=== PATIENT | female | born 1955 | race African-American/Black ===

== ENCOUNTER 2018-11-26 19:52 | Observation (INO) | payer OTHER ==
[2018-11-26 19:58] VITALS: BMI 27.9
--- NOTE | 2018-11-26 20:04 | PDOC ---
History of Present Illness - General Chief Complaint: Altered Mental Status Stated Complaint: DIZZINESS/WEAKNESS Time Seen by Provider: 11/26/18 20:03 Past History - Past Medical History Allergies/Adverse Reactions: Allergies Allergy/AdvReac Type Severity Reaction Status Date / Time No Known Allergies Allergy Verified 11/26/18 19:58 CVA: Yes (tia) COPD: No Diabetes: Yes HTN: Yes Hypercholesterolemia: Yes - Suicide/Smoking/Psychosocial Hx Smoking History: Never smoked *Physical Exam - Vital Signs Last Vital Signs Temp Pulse Resp BP Pulse Ox 82 16 108/78 98 11/26/18 19:55 11/26/18 19:55 11/26/18 19:55 11/26/18 19:55
--- NOTE | 2018-11-26 20:05 | PDOC ---
Attending Attestation - HPI HPI: This patient is a 60 year old female with PMHx of DM, HTN, HLD who presents for evaluation of weakness and dizziness earlier today. Her family states that she was discharged from [facility] yesterday following TIA. Patient has been increasingly confused for a year and is at her baseline today. She states that she fell down 2x after feeling weak. She denies hitting head, loc, chest pain, shortness of breath, confusion, or prior falls. - Physicial Exam PE: GENERAL: Awake, alert, and fully oriented, in no acute distress HEAD: No signs of trauma EYES: PERRLA, EOMI, sclera anicteric, conjunctiva clear NECK: Normal ROM, supple, no lymphadenopathy, JVD, or masses LUNGS: Breath sounds equal, clear to auscultation bilaterally. No wheezes, and no crackles HEART: Regular rate and rhythm, normal S1 and S2, no murmurs, rubs or gallops ABDOMEN: Soft, nontender, normoactive bowel sounds. No guarding, no rebound. No masses EXTREMITIES: Normal range of motion, no edema. No clubbing or cyanosis. No cords, erythema, or tenderness NEUROLOGICAL: Cranial nerves II through XII grossly intact. Normal speech, normal gait SKIN: Warm, Dry, normal turgor, no rashes or lesions noted. <Indiana Wiley - Last Filed: 11/26/18 22:31> - Resident Resident Name: Juancarlos Jackson - HPI HPI: 11/26/18 22:03 - Medical Decision Making 11/26/18 22:19 Pt presents to the ED complaining of fall from standing x 2 today, along with mild lightheadness. Now denies complaints and is neurologically intact. Recent admission to [facility] for TIA. Differential includes infection, metabolic derrangement, less likely TIA. 11/26/18 22:19 <Azra De Leon - Last Filed: 11/27/18 01:46> Attestations - Attestations 11/26/18 22:31 Documentation prepared by Indiana Wiley, acting as anesthesiology medical doctor for Azra De Leon MD. <Indiana Wiley - Last Filed: 11/26/18 22:31>
--- NOTE | 2018-11-26 20:44 | PDOC ---
History of Present Illness - General Chief Complaint: Altered Mental Status Stated Complaint: DIZZINESS/WEAKNESS Time Seen by Provider: 11/26/18 20:03 - History of Present Illness Initial Comments: 11/26/18 20:42 Ms. Degroot is a 60 yo female w/ pmh of DM, HTN, HLD who presents for evaluation of weakness earlier today. Family w/ patient report she was discharged from [facility] yesterday following TIA. Patient has been increasingly confused for a year and is at her baseline today. Presents today as patient was leaning against a car and fell down as she felt weak. Denies LOC or hitting her head. The patient denies chest pain, shortness of breath, headache and dizziness. Denies fever, chills, nausea, vomit, diarrhea and constipation. Denies dysuria, frequency, urgency and hematuria. Past History - Past Medical History Allergies/Adverse Reactions: Allergies Allergy/AdvReac Type Severity Reaction Status Date / Time No Known Allergies Allergy Verified 11/26/18 19:58 CVA: Yes (tia) COPD: No Diabetes: Yes HTN: Yes Hypercholesterolemia: Yes - Suicide/Smoking/Psychosocial Hx Smoking History: Never smoked Review of Systems - Review of Systems Comments:: 11/26/18 20:42 GENERAL/CONSTITUTIONAL: +Weakness as described. No fever or chills. HEAD, EYES, EARS, NOSE AND THROAT: No change in vision. No ear pain or discharge. No sore throat. CARDIOVASCULAR: No chest pain or shortness of breath RESPIRATORY: No cough, wheezing, or hemoptysis. GASTROINTESTINAL: No nausea, vomiting, diarrhea or constipation. GENITOURINARY: No dysuria, frequency, or change in urination. MUSCULOSKELETAL: No joint or muscle swelling or pain. No neck or back pain. SKIN: No rash NEUROLOGIC: +Mild confusion at baseline (per family). No headache, vertigo, loss of consciousness, or change in strength/sensation. ENDOCRINE: No increased thirst. No abnormal weight change HEMATOLOGIC/LYMPHATIC: No anemia, easy bleeding, or history of blood clots. ALLERGIC/IMMUNOLOGIC: No hives or skin allergy. *Physical Exam - Vital Signs Last Vital Signs Temp Pulse Resp BP Pulse Ox 97.6 F 82 16 108/78 98 11/26/18 20:32 11/26/18 19:55 11/26/18 19:55 11/26/18 19:55 11/26/18 19:55 - Physical Exam Comments: 11/26/18 20:43 GENERAL: +Patient mildly confused. Awake, alert, and oriented to baseline, in no acute distress HEAD: No signs of trauma, normocephalic, atraumatic EYES: PERRLA, EOMI, sclera anicteric, conjunctiva clear ENT: Auricles normal inspection, hearing grossly normal, nares patent, oropharynx clear without exudates. Moist mucosa NECK: Normal ROM, supple, no lymphadenopathy, JVD, or masses LUNGS: No distress, speaks full sentences, clear to auscultation bilaterally HEART: Regular rate and rhythm, normal S1 and S2, no murmurs, rubs or gallops, peripheral pulses normal and equal bilaterally. ABDOMEN: Soft, nontender, normoactive bowel sounds. No guarding, no rebound. No masses EXTREMITIES: Normal inspection, Normal range of motion, no edema. No clubbing or cyanosis. NEUROLOGICAL: Cranial nerves II through XII grossly intact. Normal speech, normal gait, no focal sensorimotor deficits SKIN: Warm, Dry, normal turgor, no rashes or lesions noted. ED Treatment Course - LABORATORY CBC & Chemistry Diagram: 11/26/18 21:10 11/26/18 21:10 Medical Decision Making - Medical Decision Making 11/26/18 22:50 Ms. Degroot is a 63 yo female w/ pmh as described who presents for evaluation of symptoms of weakness in the setting of recent TIA. Patient evaluated with labs as below as well as EKG, CXR, CT. Patient labs significant for UTI as below as well as LAMBERT. Patient unable to provide baseline creatinine number. 11/26/18 23:03 Chronic microvascular ischemic changes noted on CT Head only. Patient will be admitted for further evaluation and Cr trending. Laboratory Results - last 24 hr 11/26/18 11/26/18 11/26/18 21:10 21:10 21:20 WBC 9.8 RBC 4.84 Hgb 13.8 Hct 41.7 MCV 86.3 MCH 28.6 MCHC 33.1 RDW 15.6 Plt Count 263 MPV 8.5 Absolute Neuts (auto) 6.5 Neutrophils % 66.3 Lymphocytes % 25.9 Monocytes % 6.6 Eosinophils % 0.7 Basophils % 0.5 Nucleated RBC % 0 Sodium 140 Potassium 4.1 Chloride 103 Carbon Dioxide 29 Anion Gap 8 BUN 31 H Creatinine 1.7 H Creat Clearance w eGFR 30.56 Random Glucose 183 H Calcium 9.1 Total Bilirubin 0.3 AST 31 ALT 34 Alkaline Phosphatase 142 H Creatine Kinase 147 Troponin I < 0.02 Total Protein 7.6 Albumin 4.0 Urine Color Dk yellow Urine Appearance Cloudy Urine pH 5.0 Ur Specific [place] 1.031 Urine Protein 1+ H Urine Glucose (UA) Negative Urine Ketones 1+ H Urine Blood Negative Urine Nitrite Negative Urine Bilirubin 1+ H Urine Urobilinogen 1.0 Ur Leukocyte Esterase 2+ H Urine WBC (Auto) 160 Urine RBC (Auto) 5.0 Urine Casts (Auto) 84 U Pathogenic Cast Auto None seen U Epithel Cells (Auto) 5.8 Urine Bacteria (Auto) 615.3 *DC/Admit/Observation/Transfer Diagnosis at time of Disposition: LAMBERT (acute kidney injury), Weakness UTI (urinary tract infection) Qualifiers: Urinary tract infection type: site unspecified Hematuria presence: without hematuria Qualified Code(s): N39.0 - Urinary tract infection, site not specified - Discharge Dispostion Decision to Admit order: Yes - Referrals Referrals: Dante Cardozo [Primary Care Provider] - - Patient Instructions - Post Discharge Activity
[2018-11-26 21:17] LABS: BASO % 0.5 % (0-2.0); EOS % 0.7 % (0-4.5); HEMATOCRIT 41.7 % (32.4-45.2); HEMOGLOBIN 13.8 GM/dL (10.7-15.3); LYMPH % 25.9 % (8-40); MCH 28.6 pg (25.7-33.7); MCHC 33.1 g/dl (32.0-36.0); MEAN CELL VOLUME 86.3 fl (80-96); MEAN PLT VOLUME 8.5 fl (7.5-11.1); MONO % 6.6 % (3.8-10.2); NEUT % 66.3 % (42.8-82.8); PLATELET COUNT 263 K/MM3 (134-434); RBC 4.84 M/mm3 (3.60-5.2); RDW 15.6 % (11.6-15.6); WHITE BLOOD COUNT 9.8 K/mm3 (4.0-10.0)
[2018-11-26 21:29] LABS: EPI CELLS 5.8 /HPF (0-5/HPF); URINE APPEARANCE CLOUDY; URINE BACTERIA 615.3 /hpf (NEGATIVE); URINE BILIRUBIN 1+ (NEGATIVE); URINE CASTS 84 /hpf (0-8); URINE COLOR DK YELLOW; URINE GLUCOSE (UA) NEGATIVE (NEGATIVE); URINE KETONE 1+ (NEGATIVE); URINE LEUK ESTERASE 2+ (NEGATIVE); URINE NITRITE NEGATIVE (NEGATIVE); URINE PROTEIN 1+ (NEGATIVE); URINE WBC 160 /hpf (0-5)
[2018-11-26 21:42] LABS: ALK PHOS 142 U/L (45-117); ANION GAP 8 MMOL/L (8-16); BILIRUBIN,TOTAL 0.3 mg/dL (0.2-1); BLOOD UREA NITROGEN 31 mg/dL (7-18); CALCIUM 9.1 mg/dL (8.5-10.1); CHLORIDE 103 mmol/L (98-107); CO2 29 mmol/L (21-32); CREATININE 1.7 mg/dL (0.55-1.3); GLUCOSE,RANDOM 183 mg/dL (74-106); POTASSIUM 4.1 mmol/L (3.5-5.1); SGOT/AST 31 U/L (15-37); SGPT/ALT 34 U/L (13-61); SODIUM 140 mmol/L (136-145); TOT PROT 7.6 g/dl (6.4-8.2)
[2018-11-26] MEDS ORDERED: CEFTRIAXONE 1,000 MG in DEXTROSE 5%-WATER - 50 ML IVPB ONE (22:49)
[2018-11-26] MEDS ORDERED: SODIUM CHLORIDE 500 ML IV STA (22:49)
[2018-11-26] MEDS ORDERED: CEFTRIAXONE 1 GM/50 ML BAG ONE (23:09)
--- NOTE | 2018-11-26 23:17 | HP ---
Admitting History and Physical - Primary Care Physician PCP: Dante Cardozo - Admission Chief Complaint: Weakness History of Present Illness: This is a 63 y/o woman with a PMHx of DM, HTN, HLD, TIA (recent discharge from [facility]). Who presents to the ED with family for generalized weakness , s/p fall today. 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) Cardiovascular: Yes: HTN, Hyperlipdemia Endocrine: Yes: Diabetes Mellitus - Smoking History Smoking history: Never smoked - Social History History of Recent Travel: No Home Medications - Allergies Allergies/Adverse Reactions: Allergies Allergy/AdvReac Type Severity Reaction Status Date / Time No Known Allergies Allergy Verified 11/26/18 19:58 Family Disease History - Family Disease History Family History: Unable to Obtain Review of Systems - Review of Systems Constitutional: reports: Malaise, Weakness Eyes: reports: No Symptoms HENT: reports: No Symptoms Neck: reports: No Symptoms Cardiovascular: reports: No Symptoms Respiratory: reports: No Symptoms Gastrointestinal: reports: No Symptoms Genitourinary: reports: No Symptoms Breasts: reports: No Symptoms Reported Musculoskeletal: reports: No Symptoms Integumentary: reports: No Symptoms Neurological: reports: Confusion, Weakness Endocrine: reports: No Symptoms Hematology/Lymphatic: reports: No Symptoms Psychiatric: reports: No Symptoms Physical Examination Vital Signs: Vital Signs Temperature 97.6 F 11/26/18 20:32 Pulse Rate 82 11/26/18 19:55 Respiratory Rate 16 11/26/18 19:55 Blood Pressure 108/78 11/26/18 19:55 O2 Sat by Pulse Oximetry (%) 98 11/26/18 19:55 Labs: CBC, BMP 11/26/18 21:10 11/26/18 21:10 Imaging - Results Chest X-ray: Image Reviewed Cat Scan: Image Reviewed Problem List - Problems (1) Weakness Assessment/Plan: Likely secondary to hypovalemia vs UTI vs TIA Head CT- neg ICH, chronic microvascular changes NS bolus given in ED Monitor CBC, BMP Fall Precautions Gentle IVF PT eval Consider STR Code(s): R53.1 - WEAKNESS (2) LAMBERT (acute kidney injury) Assessment/Plan: Awaiting lab reports from [facility] for comparison Continue IVF Consider Nephrology consult if condition worsens Monitor BMP Moniotr vitals Code(s): N17.9 - ACUTE KIDNEY FAILURE, UNSPECIFIED (3) UTI (urinary tract infection) Assessment/Plan: UA- +2 leukocyte esterase, 615 WBCs, +1 ketones Urine Culture-pending Ceftriaxone given in ED Will continue in light patient presents with weakness, baseline confusion Tylenol prn Monitor CBC Monitor vitals Code(s): N39.0 - URINARY TRACT INFECTION, SITE NOT SPECIFIED Qualifiers: Urinary tract infection type: site unspecified Hematuria presence: without hematuria Qualified Code(s): N39.0 - Urinary tract infection, site not specified (4) HTN (hypertension) Assessment/Plan: stable Monitor BP Will need to confirm with family home meds Code(s): I10 - ESSENTIAL (PRIMARY) HYPERTENSION (5) HLD (hyperlipidemia) Assessment/Plan: stable Confirm with family home meds Code(s): E78.5 - HYPERLIPIDEMIA, UNSPECIFIED (6) Diabetes mellitus Assessment/Plan: sub optimal BGMs ISS Code(s): E11.9 - TYPE 2 DIABETES MELLITUS WITHOUT COMPLICATIONS (7) History of TIA (transient ischemic attack) Assessment/Plan: Head CT- neg ICH, chronic microvascular changes Continue ASA, Statin Neuro Checks Fall precautions Code(s): Z86.73 - PRSNL HX OF TIA (TIA), AND CEREB INFRC W/O RESID DEFICITS Assessment/Plan 63 y/o woman with a PMHx of: HTN, DM, HLD, Confusion, TIA (recent admission [facility]). Placed in Observation for LAMBERT, Weakness, UTI for further evaluation of their emergent condition. Plan: See Problem List FEN PO fluids as tolerated Replete lytes prn Low Na, Diabetic Diet Dispo: Observation Visit type - Emergency Visit Emergency Visit: Yes ED Registration Date: 11/26/18 Care time: The patient presented to the Emergency Department on the above date and was hospitalized for further evaluation of their emergent condition. - New Patient This patient is new to me today: Yes Date on this admission: 11/26/18 - Critical Care Critical Care patient: No
[2018-11-27] MEDS ORDERED: SODIUM CHLORIDE 1,000 ML IV SCH (02:30)
[2018-11-27 06:57] LABS: BASO % 0.2 % (0-2.0); EOS % 1.6 % (0-4.5); HEMATOCRIT 34.6 % (32.4-45.2); HEMOGLOBIN 11.6 GM/dL (10.7-15.3); LYMPH % 35.6 % (8-40); MCH 28.6 pg (25.7-33.7); MCHC 33.6 g/dl (32.0-36.0); MEAN CELL VOLUME 85.1 fl (80-96); MEAN PLT VOLUME 8.6 fl (7.5-11.1); MONO % 8.6 % (3.8-10.2); PLATELET COUNT 225 K/MM3 (134-434); RBC 4.06 M/mm3 (3.60-5.2); RDW 15.6 % (11.6-15.6)
[2018-11-27] MEDS ORDERED: metFORMIN HCL 500 MG TABLET (FP) PO SCH (07:00)
[2018-11-27 07:56] LABS: ANION GAP 7 MMOL/L (8-16); BLOOD UREA NITROGEN 25 mg/dL (7-18); CALCIUM 7.7 mg/dL (8.5-10.1); CHLORIDE 107 mmol/L (98-107); CO2 27 mmol/L (21-32); CREATININE 1.2 mg/dL (0.55-1.3); GLUCOSE,RANDOM 93 mg/dL (74-106); MAGNESIUM 2.2 mg/dL (1.8-2.4); PHOSPHOROUS 3.9 mg/dL (2.5-4.9); POTASSIUM 3.6 mmol/L (3.5-5.1); SODIUM 141 mmol/L (136-145)
[2018-11-27] MEDS ORDERED: PATIENT'S OWN MEDICATION (NON-FORMULARY) (Losartan Potassium [Losartan Potassium] 100 MG) PO SCH (10:00)
--- NOTE | 2018-11-27 10:07 | PN ---
Progress Note, Physician Chief Complaint: FALL LAMBERT UTI History of Present Illness: NAD in bed no complains - Current Medication List Current Medications: Active Medications Aspirin (Asa -) 81 mg PO DAILY [facility] Atorvastatin Calcium (Lipitor -) 80 mg PO HS [facility] Donepezil HCl (Aricept -) 5 mg PO HS [facility] Ceftriaxone Sodium 1 gm/ (Dextrose) 50 mls @ 100 mls/hr IVPB DAILY [facility]; Protocol Sodium Chloride (Normal Saline -) 1,000 mls @ 75 mls/hr IV ASDIR [facility] Losartan Potassium (Cozaar -) 100 mg PO DAILY [facility] Metformin HCl (Glucophage -) 500 mg PO BIDAC [facility] Last Admin: 11/27/18 06:18 Dose: Not Given Metoprolol Succinate (Toprol Xl -) 25 mg PO DAILY [facility] Multivitamins (Total B With C -) 1 each PO DAILY [facility] - Objective Vital Signs: Vital Signs Temperature 98.0 F 11/27/18 06:17 Pulse Rate 84 11/27/18 06:17 Respiratory Rate 18 11/27/18 06:17 Blood Pressure 136/85 11/27/18 06:17 O2 Sat by Pulse Oximetry (%) 100 11/27/18 02:00 Constitutional: Yes: Well Nourished, No Distress, Calm Cardiovascular: Yes: Regular Rate and Rhythm Respiratory: Yes: Regular Gastrointestinal: Yes: WNL, Normal Bowel Sounds, Soft Musculoskeletal: Yes: WNL Extremities: Yes: WNL Edema: No Peripheral Pulses WNL: Yes Neurological: Yes: Alert, Oriented Psychiatric: Yes: Alert, Oriented Labs: CBC, BMP 11/27/18 06:10 11/27/18 06:10 Assessment/Plan (1) Weakness Assessment/Plan: -dehydration -Continue IVF -Physical therapy and physiatry consult -Neurology consult -safety precautions -Head CT- neg ICH, chronic microvascular changes -SNF if eligible -Check B12, RPR, T4 added Code(s): R53.1 - WEAKNESS (2) LAMBERT (acute kidney injury) Assessment/Plan: -Cr improved -Nephrology consult -monitor trend Code(s): N17.9 - ACUTE KIDNEY FAILURE, UNSPECIFIED (3) UTI (urinary tract infection) Assessment/Plan: -UA- +2 leukocyte esterase, 615 WBCs, +1 ketones -Urine Culture-pending -Continue Ceftriaxone Code(s): N39.0 - URINARY TRACT INFECTION, SITE NOT SPECIFIED Qualifiers: Urinary tract infection type: site unspecified Hematuria presence: without hematuria Qualified Code(s): N39.0 - Urinary tract infection, site not specified (4) HTN (hypertension) Assessment/Plan: -stable -Monitor BP -Continue home meds Code(s): I10 - ESSENTIAL (PRIMARY) HYPERTENSION (5) HLD (hyperlipidemia) Assessment/Plan: -stable Code(s): E78.5 - HYPERLIPIDEMIA, UNSPECIFIED (6) Diabetes mellitus Assessment/Plan: -Check A1c -BGM AC HS -Diabetic low sodum diet -novolog sliding scale Code(s): E11.9 - TYPE 2 DIABETES MELLITUS WITHOUT COMPLICATIONS (7) History of TIA (transient ischemic attack) Assessment/Plan: -Head CT- neg ICH, chronic microvascular changes -Continue ASA, Statin -Neuro Checks -Fall precautions Code(s): Z86.73 - PRSNL HX OF TIA (TIA), AND CEREB INFRC W/O RESID DEFICITS
[2018-11-27] MEDS ORDERED: PT OWN MED DRAWER 7, Y5N ONE (10:37)
[2018-11-27] MEDS ORDERED: cefTRIAXone SODIUM 1 GM VIAL ONE ×2 (10:38→10:41)
[2018-11-27] MEDS ORDERED: DEXTROSE 5%-WATER - 50 ML IVPB ONE (10:41)
[2018-11-27] MEDS: ASPIRIN 81 MG CHEWABLE TABLETS PO SCH (10:44)
[2018-11-27] MEDS: LOSARTAN POTASSIUM 50 MG TABLET (FP) PO SCH (10:44)
[2018-11-27] MEDS: metoPROLOL SUCCINATE 25 MG TAB.SR.24H (FP) PO SCH (10:44)
[2018-11-27] MEDS: SODIUM CHLORIDE 1,000 ML IV SCH ×2 (10:45→21:38)
[2018-11-27] MEDS: VITAMIN B COMPLEX W/C COMBO TABLET (FP) PO SCH (12:07)
[2018-11-27 16:22] LABS: ANION GAP 7 MMOL/L (8-16); BLOOD UREA NITROGEN 23 mg/dL (7-18); CALCIUM 8.4 mg/dL (8.5-10.1); CHLORIDE 107 mmol/L (98-107); CO2 28 mmol/L (21-32); CREATININE 1.1 mg/dL (0.55-1.3); GLUCOSE,RANDOM 106 mg/dL (74-106); POTASSIUM 3.7 mmol/L (3.5-5.1); SODIUM 141 mmol/L (136-145)
[2018-11-27] MEDS: CEFTRIAXONE 1 GM in DEXTROSE 5%-WATER - 50 ML IVPB SCH (16:23)
[2018-11-27] MEDS: INSULIN SLIDING SCALE (NOVOLOG) 1 VIAL SQ SCH (17:42)
--- NOTE | 2018-11-27 19:25 | CON.NEURO ---
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) Cardio/Vascular: Yes: HTN, Hyperlipdemia Endocrine: Yes: Diabetes Mellitus - Alcohol/Substance Use Hx Alcohol Use: No - Smoking History Smoking history: Never smoked - Social History History of Recent Travel: No Home Medications - Allergies Allergies/Adverse Reactions: Allergies Allergy/AdvReac Type Severity Reaction Status Date / Time No Known Allergies Allergy Verified 11/26/18 19:58 - Home Medications Home Medications: Ambulatory Orders Aspirin [ASA -] 81 mg PO DAILY 11/26/18 Atorvastatin Ca [Lipitor] 80 mg PO HS 11/26/18 Donepezil HCl 5 mg PO DAILY 11/26/18 Hydrochlorothiazide 25 mg PO DAILY 11/26/18 Insulin Glargine,Hum.rec.anlog [Basaglar Kwikpen U-100] 20 unit SQ HS 11/26/18 Losartan Potassium 100 mg PO DAILY 11/26/18 Metformin HCl [Glucophage] 500 mg PO BID 11/26/18 Metoprolol Succinate 25 mg PO DAILY 11/26/18 Vitamin B Complex 1 each PO DAILY 11/26/18 Physical Exam-Neuro Vital Signs: Vital Signs Temperature 97.4 F L 11/27/18 18:00 Pulse Rate 74 11/27/18 18:00 Respiratory Rate 20 11/27/18 18:00 Blood Pressure 133/65 11/27/18 18:00 O2 Sat by Pulse Oximetry (%) 100 11/27/18 02:00 Labs: CBC, BMP 11/27/18 06:10 11/27/18 15:45 Assessment/Plan Covering for Dr Han CC Feeling of Generalized weakness HPI 60 year old female history of DM, HTN, HLD . Patient was recently admitted to [facility] and is on aspirin and statin. Patient came to hospital for fall on ground, she could not tell if she LOC. Patient has ct scan of brain done , report is pending. Old records from [facility] are being requested. Patient is feeling better now and almost back to normal. PMH as above. SH,FH,ROS reviewed in chart Medications Aspirin (Asa -) 81 mg PO DAILY [facility] Atorvastatin Calcium (Lipitor -) 80 mg PO HS [facility] Donepezil HCl (Aricept -) 5 mg PO HS [facility] Ceftriaxone Sodium 1 gm/ (Dextrose) 50 mls @ 100 mls/hr IVPB DAILY [facility]; Protocol Sodium Chloride (Normal Saline -) 1,000 mls @ 75 mls/hr IV ASDIR [facility] Losartan Potassium (Cozaar -) 100 mg PO DAILY [facility] Metformin HCl (Glucophage -) 500 mg PO BIDAC [facility] Last Admin: 11/27/18 06:18 Dose: Not Given Metoprolol Succinate (Toprol Xl -) 25 mg PO DAILY [facility] Multivitamins (Total B With C -) 1 each PO DAILY [facility] NEUROLOGICAL EXAMINATION Alert oriented x 2, she could not tell date, she has history of dementia speech is normal , swallowing is normal, no neck stiffness Eomi, pupils reactive, no face asymmetry moving all extremity sensation and reflex are normal planter id down going ct head report pending carotid ultrasound is not done , ? recently admitted to [facility] and records being requested Assessment : 63 year old female history HTN,HLD,DM, Dementia and tia ( recently admitted to [facility]) came with fall, feeling generalized weakness. Neuro exam is nonfocal except disorientation ( history of dementia ), no evidence of cord compression, neuropathy , extrapyramidal syndrome or cerebellar dysfunction. Clinically unlikely to be Stroke/tia, seizure , she is found to have uti , and on abx( ceftrixione ) , that could be cause of fall Plan: follow up on ct head results - a carotid ultrasound can be obtained - continue aspirin and statin - pt , dvt prophylaxis, and treatment for UTI continue supportive care Thanking you so much Karan Sanches MD
--- NOTE | 2018-11-27 20:24 | CON.NEP ---
Consult Consult Specialty:: Nephrology Referred by:: susi Reason for Consultation:: lambert - History of Present Illness Chief Complaint: confusion History of Present Illness: asked to eval pt admitted with encephalopathy and azotemia she is with periods of confusion was found to have a UTI getting IV abx renal function has improved over past few hours DM, HTN, HLD . 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) Cardio/Vascular: Yes: HTN, Hyperlipdemia Endocrine: Yes: Diabetes Mellitus - Alcohol/Substance Use Hx Alcohol Use: No - Smoking History Smoking history: Never smoked - Social History History of Recent Travel: No Home Medications - Allergies Allergies/Adverse Reactions: Allergies Allergy/AdvReac Type Severity Reaction Status Date / Time No Known Allergies Allergy Verified 11/26/18 19:58 - Home Medications Home Medications: Ambulatory Orders Aspirin [ASA -] 81 mg PO DAILY 11/26/18 Atorvastatin Ca [Lipitor] 80 mg PO HS 11/26/18 Donepezil HCl 5 mg PO DAILY 11/26/18 Hydrochlorothiazide 25 mg PO DAILY 11/26/18 Insulin Glargine,Hum.rec.anlog [Basaglar Kwikpen U-100] 20 unit SQ HS 11/26/18 Losartan Potassium 100 mg PO DAILY 11/26/18 Metformin HCl [Glucophage] 500 mg PO BID 11/26/18 Metoprolol Succinate 25 mg PO DAILY 11/26/18 Vitamin B Complex 1 each PO DAILY 11/26/18 Nephrology Consult - Height Height: 5 ft 5 in - Weight Weight: 168 lb 0.017 oz - BMI Body Mass Index (BMI): 27.9 - Lab Results CBC,BMP: CBC, BMP 11/27/18 06:10 11/27/18 15:45 Anion Gap: Anion Gap Anion Gap 7 MMOL/L (8-16) L 11/27/18 15:45 - Physical Examination Vital Signs: Vital Signs Temperature 97.4 F L 11/27/18 18:00 Pulse Rate 74 11/27/18 18:00 Respiratory Rate 20 11/27/18 18:00 Blood Pressure 133/65 11/27/18 18:00 O2 Sat by Pulse Oximetry (%) 100 11/27/18 02:00 Assessment/Plan LAMBERT/Prerenal azotemia improving with IVF/IV abx she has 1+ proteinuria whaich hard to interpret with a UTI probably has fluid deficit and hemodynamic renal failure which is resolving Plan- agree with IVF since oral intake may be unreliable with periods of confusion
[2018-11-27] MEDS ORDERED: DONEPEZIL HCL 5 MG TABLET (FP) PO SCH (22:00)
[2018-11-27] MEDS ORDERED: ATORVASTATIN CA 80 MG TABLET (FP) PO SCH (22:00)
[2018-11-28 06:22] LABS: EPI CELLS 1.4 /HPF (0-5/HPF); URINE APPEARANCE CLEAR; URINE BILIRUBIN NEGATIVE (NEGATIVE); URINE CASTS 0 /hpf (0-8); URINE COLOR YELLOW; URINE GLUCOSE (UA) NEGATIVE (NEGATIVE); URINE KETONE NEGATIVE (NEGATIVE); URINE LEUK ESTERASE TRACE (NEGATIVE); URINE NITRITE NEGATIVE (NEGATIVE); URINE PROTEIN NEGATIVE (NEGATIVE); URINE RBC 1 /hpf (0-4); URINE UROBILINOGEN 0.2 mg/dL (0.2-1.0); URINE WBC 3 /hpf (0-5)
[2018-11-28] MEDS: INSULIN SLIDING SCALE (NOVOLOG) 1 VIAL SQ SCH ×3 (06:38→17:24)
[2018-11-28 07:14] LABS: ALBUMIN 3.2 g/dl (3.4-5.0); ALK PHOS 117 U/L (45-117); ANION GAP 7 MMOL/L (8-16); BILIRUBIN,TOTAL 0.4 mg/dL (0.2-1); BLOOD UREA NITROGEN 16 mg/dL (7-18); CALCIUM 8.5 mg/dL (8.5-10.1); CHLORIDE 108 mmol/L (98-107); CO2 28 mmol/L (21-32); GLUCOSE,RANDOM 88 mg/dL (74-106); POTASSIUM 3.8 mmol/L (3.5-5.1); SGOT/AST 23 U/L (15-37); SGPT/ALT 30 U/L (13-61); SODIUM 142 mmol/L (136-145); TOT PROT 6.2 g/dl (6.4-8.2)
--- NOTE | 2018-11-28 08:43 | CONS ---
PHYSICAL MEDICINE AND REHABILITATION CONSULTATION DATE OF CONSULTATION: 11/28/2018 HISTORY OF PRESENT ILLNESS: Patient is a 63-year-old woman with past medical history of diabetes and TIA who was admitted to [facility] on November 26 following a fall. Patient states that she does not remember why she fell. She just tripped and fell. She states she suffered no injury, but she was brought to [facility]. CT of the head showed no acute intracranial pathology. There was some mild ventricular dilatation and involutional changes as well as some chronic microvascular ischemic changes noted. Patient underwent chest x-ray which demonstrated no infiltrate or effusion. Blood work on admission: WBCs borderline at 9.8, hemoglobin 13.8, platelet count 263. Chemistry on admission demonstrated an elevated BUN of 31 to creatinine 1.7. Alkaline phosphatase was elevated at 142. Troponin less than 0.02. She underwent further blood work including B12 which was normal 934, folate normal 10, TSH normal 1.47. Her hemoglobin A1c was elevated at 6.7. Repeat blood work this morning showed an improvement in her BUN to 16 and creatinine to 1.0, chloride slightly elevated at 108, potassium normal 3.8, sodium 142. CBC was within normal limits. Patient states she is up and ambulating to the bathroom. She was seen by Physical Therapy and able to ambulate 120 feet with supervision. She appeared slightly unsteady, but no loss of balance and a straight cane was recommended. Patient again is seen in rehabilitation evaluation. She was seen by Neurology as well as Nephrology. REVIEW OF PAST MEDICAL AND SURGICAL HISTORY: As above. There is also mention of altered mental status or dementia and TIA, diabetes, hyperlipidemia. SOCIAL HISTORY: She states she lives in an apartment with stairs to enter. Premorbidly she states she was independent and ambulatory without assistive device. Current function as above. REVIEW OF SYSTEMS: She denies any dizziness, any lightheadedness, any chest pain, shortness of breath, any fever or chills, any bowel or bladder incontinence, any joint arthralgias. No numbness, tingling in the upper or lower limbs. No weight loss, weight gain. PHYSICAL EXAMINATION: General: Patient is resting quietly in bed, but easily arousable, cooperative. HEENT: She is normocephalic and atraumatic. Extraocular muscles appear intact. Neck: Supple. Extremities: Without any pitting edema or calf tenderness. Neuromuscular: She is awake, alert. Cranial nerves II through XII appear grossly intact. She has good motor power in both the upper and lower extremities. Normal sensation. Good joint stability. No gross arthritic changes. Symmetric reflexes. OVERALL IMPRESSION: 1. Status post fall. 2. Slightly unsteady gait on physical therapy evaluation. 3. Diabetes. 4. History of transient ischemic attack. 5. Possible mild dementia. 6. Hypertension. 7. Hyperlipidemia. 8. Prerenal azotemia resolving. 9. Elevated hemoglobin A1c. 10. Hypoalbuminemia. PLAN/SUGGESTIONS: 1. Patient can ambulate with staff on the unit. 2. Out of bed to chair. 3. DVT prophylaxis: Early ambulation. Patient has SCDs. 4. Skin precaution given the low albumin. 5. Consider nutritional consultation given the diabetes and hypoalbuminemia. 6. Follow up as an outpatient if further therapy needed. Thank you for this referral. AYSHA SANTILLAN M.D. HEBER/[id number]
[2018-11-28] MEDS ORDERED: cefTRIAXone SODIUM 1 GM VIAL ONE (10:23)
[2018-11-28] MEDS ORDERED: PT OWN MED DRAWER 7, Y5N ONE (10:23)
[2018-11-28] MEDS ORDERED: DEXTROSE 5%-WATER - 50 ML IVPB ONE (10:23)
[2018-11-28] MEDS: metoPROLOL SUCCINATE 25 MG TAB.SR.24H (FP) PO SCH (10:32)
[2018-11-28] MEDS: CEFTRIAXONE 1 GM in DEXTROSE 5%-WATER - 50 ML IVPB SCH (10:33)
[2018-11-28] MEDS: LOSARTAN POTASSIUM 50 MG TABLET (FP) PO SCH (10:33)
[2018-11-28] MEDS: ASPIRIN 81 MG CHEWABLE TABLETS PO SCH (10:33)
--- NOTE | 2018-11-28 10:33 | EKG ---
Test Reason : Blood Pressure : / mmHG Vent. Rate : 085 BPM Atrial Rate : 085 BPM P-R Int : 142 ms QRS Dur : 070 ms QT Int : 364 ms P-R-T Axes : 069 049 075 degrees QTc Int : 433 ms POOR DATA QUALITY, INTERPRETATION MAY BE ADVERSELY AFFECTED NORMAL SINUS RHYTHM POSSIBLE LEFT ATRIAL ENLARGEMENT BORDERLINE ECG WHEN COMPARED WITH ECG OF 19-NOV-2009 19:04, NO SIGNIFICANT CHANGE WAS FOUND Confirmed by BRI CRUZ, KARLO ([id number]) on 11/28/2018 10:33:15 AM Referred By: Confirmed By:KARLO GREGORY MD
[2018-11-28] MEDS: SODIUM CHLORIDE 1,000 ML IV SCH (10:34)
[2018-11-28] MEDS: VITAMIN B COMPLEX W/C COMBO TABLET (FP) PO SCH (10:35)
--- NOTE | 2018-11-28 12:33 | PN ---
Progress Note (short form) - Note Progress Note: Renal follow up for LAMBERT Pt seen and examined at the bedside no acute complaints denies any sob, cp, abd pain, N/V/D, flank pain making urine appetite is good on IVF Vital Signs Temperature 98.3 F 11/28/18 06:00 Pulse Rate 76 11/28/18 06:00 Respiratory Rate 20 11/28/18 06:00 Blood Pressure 158/92 11/28/18 06:00 O2 Sat by Pulse Oximetry (%) 100 11/28/18 02:00 Intake & Output 11/25/18 11/26/18 11/27/18 11/28/18 23:59 23:59 23:59 23:59 Intake Total 1424 900 Balance 1424 900 Weight 76.204 kg 76.204 kg NAD awake and alert neck supple, no JVD RRR, no M/R CTA, no rales or wheeze soft NT/ND no LE edema CBC, BMP 11/27/18 06:10 11/28/18 06:00 Current Medications Aspirin (Asa -) 81 mg PO DAILY [facility] Last Admin: 11/28/18 10:33 Dose: 81 mg Atorvastatin Calcium (Lipitor -) 80 mg PO HS [facility] Last Admin: 11/27/18 21:50 Dose: 80 mg Donepezil HCl (Aricept -) 5 mg PO HS [facility] Last Admin: 11/27/18 21:50 Dose: 5 mg Ceftriaxone Sodium 1 gm/ (Dextrose) 50 mls @ 100 mls/hr IVPB DAILY [facility]; Protocol Last Admin: 11/28/18 10:33 Dose: 100 mls/hr Insulin Aspart (Novolog Vial Sliding Scale -) 1 vial SQ TIDAC [facility]; Protocol Last Admin: 11/28/18 06:38 Dose: Not Given Losartan Potassium (Cozaar -) 100 mg PO DAILY [facility] Last Admin: 11/28/18 10:33 Dose: 100 mg Metoprolol Succinate (Toprol Xl -) 25 mg PO DAILY [facility] Last Admin: 11/28/18 10:32 Dose: 25 mg Multivitamins (Total B With C -) 1 each PO DAILY [facility] Last Admin: 11/28/18 10:35 Dose: 1 each 63 year old woman with hx of DM, Hypertension, HLD, TIA presented with generalized weakness and found to have LAMBERT. #LAMBERT now resolved s/p IVF #UTI/Cystitis #hypertension #DM #Hx of TIA Renal function improved. Can d/c IVF and monitor renal function on oral intake alone Continue losartan at present dose, goal BP < 140/90. can consider addition of CCB if BP not at goal trend renal function and electrolytes can defer US of kidney as renal function improved and unlikely to have obstruction Abx as per primary team Thank you Gerber Diaz DO
--- NOTE | 2018-11-28 15:37 | DS ---
Physical Examination Vital Signs: Vital Signs Temperature 97.5 F L 11/28/18 14:58 Pulse Rate 79 11/28/18 14:58 Respiratory Rate 20 11/28/18 14:58 Blood Pressure 155/71 11/28/18 14:58 O2 Sat by Pulse Oximetry (%) 100 11/28/18 02:00 Findings/Remarks: Patient is a 63 y/o female with past medical history of DM, HTN, HLD, TIA with recent discharge from [facility]. Patient presented to ER with generalized weakness and s/p fall. Head CT negative and followed by neurology while in patient. Constitutional: Yes: No Distress, Calm Eyes: Yes: Conjunctiva Clear HENT: Yes: Atraumatic Neck: Yes: Supple Cardiovascular: Yes: Regular Rate and Rhythm Respiratory: Yes: Regular, CTA Bilaterally Gastrointestinal: Yes: Normal Bowel Sounds, Soft Musculoskeletal: Yes: Muscle Weakness Extremities: Yes: WNL Edema: No Neurological: Yes: Alert, Oriented Psychiatric: Yes: Alert, Oriented Labs: CBC, BMP 11/27/18 06:10 11/28/18 06:00 Discharge Summary Reason For Visit: ACUTE KIDNEY INJURY/UTI/WEAKNESS Current Active Problems LAMBERT (acute kidney injury) (Acute) Diabetes mellitus (Acute) HLD (hyperlipidemia) (Acute) HTN (hypertension) (Acute) History of TIA (transient ischemic attack) (Acute) UTI (urinary tract infection) (Acute) Weakness (Acute) Hospital Course: see progress note Laboratory Tests 11/26/18 11/26/18 11/26/18 21:10 21:10 21:20 WBC 9.8 RBC 4.84 Hgb 13.8 Hct 41.7 MCV 86.3 MCH 28.6 MCHC 33.1 RDW 15.6 Plt Count 263 MPV 8.5 Absolute Neuts (auto) 6.5 Neutrophils % 66.3 Lymphocytes % 25.9 Monocytes % 6.6 Eosinophils % 0.7 Basophils % 0.5 Nucleated RBC % 0 Sodium 140 Potassium 4.1 Chloride 103 Carbon Dioxide 29 Anion Gap 8 BUN 31 H Creatinine 1.7 H Creat Clearance w eGFR 30.56 POC Glucometer Random Glucose 183 H Hemoglobin A1c % Calcium 9.1 Phosphorus Magnesium Total Bilirubin 0.3 AST 31 ALT 34 Alkaline Phosphatase 142 H Creatine Kinase 147 Troponin I < 0.02 Total Protein 7.6 Albumin 4.0 Vitamin B12 Serum Folate TSH Free T4 Urine Color Dk yellow Urine Appearance Cloudy Urine pH 5.0 Ur Specific [place] 1.031 Urine Protein 1+ H Urine Glucose (UA) Negative Urine Ketones 1+ H Urine Blood Negative Urine Nitrite Negative Urine Bilirubin 1+ H Urine Urobilinogen 1.0 Ur Leukocyte Esterase 2+ H Urine WBC (Auto) 160 Urine RBC (Auto) 5.0 Urine Casts (Auto) 84 U Pathogenic Cast Auto None seen U Epithel Cells (Auto) 5.8 Urine Bacteria (Auto) 615.3 RPR Titer 11/27/18 11/27/18 11/27/18 06:10 06:10 06:11 WBC 9.0 RBC 4.06 Hgb 11.6 Hct 34.6 D MCV 85.1 MCH 28.6 MCHC 33.6 RDW 15.6 Plt Count 225 MPV 8.6 Absolute Neuts (auto) 4.9 Neutrophils % 54.0 Lymphocytes % 35.6 D Monocytes % 8.6 Eosinophils % 1.6 D Basophils % 0.2 Nucleated RBC % 0 Sodium 141 Potassium 3.6 Chloride 107 Carbon Dioxide 27 Anion Gap 7 L BUN 25 H Creatinine 1.2 Creat Clearance w eGFR 45.67 POC Glucometer 98 Random Glucose 93 Hemoglobin A1c % Calcium 7.7 L Phosphorus 3.9 Magnesium 2.2 Total Bilirubin AST ALT Alkaline Phosphatase Creatine Kinase Troponin I Total Protein Albumin Vitamin B12 934 Serum Folate 10 TSH 1.47 Free T4 1.01 Urine Color Urine Appearance Urine pH Ur Specific [place] Urine Protein Urine Glucose (UA) Urine Ketones Urine Blood Urine Nitrite Urine Bilirubin Urine Urobilinogen Ur Leukocyte Esterase Urine WBC (Auto) Urine RBC (Auto) Urine Casts (Auto) U Pathogenic Cast Auto U Epithel Cells (Auto) Urine Bacteria (Auto) RPR Titer 11/27/18 11/27/18 11/27/18 07:30 07:30 11:57 WBC RBC Hgb Hct MCV MCH MCHC RDW Plt Count MPV Absolute Neuts (auto) Neutrophils % Lymphocytes % Monocytes % Eosinophils % Basophils % Nucleated RBC % Sodium Potassium Chloride Carbon Dioxide Anion Gap BUN Creatinine Creat Clearance w eGFR POC Glucometer 124 Random Glucose Hemoglobin A1c % 6.7 H Calcium Phosphorus Magnesium Total Bilirubin AST ALT Alkaline Phosphatase Creatine Kinase Troponin I Total Protein Albumin Vitamin B12 Serum Folate TSH Free T4 Urine Color Urine Appearance Urine pH Ur Specific [place] Urine Protein Urine Glucose (UA) Urine Ketones Urine Blood Urine Nitrite Urine Bilirubin Urine Urobilinogen Ur Leukocyte Esterase Urine WBC (Auto) Urine RBC (Auto) Urine Casts (Auto) U Pathogenic Cast Auto U Epithel Cells (Auto) Urine Bacteria (Auto) RPR Titer Nonreactive 11/27/18 11/27/18 11/28/18 15:45 17:41 06:00 WBC RBC Hgb Hct MCV MCH MCHC RDW Plt Count MPV Absolute Neuts (auto) Neutrophils % Lymphocytes % Monocytes % Eosinophils % Basophils % Nucleated RBC % Sodium 141 142 Potassium 3.7 3.8 Chloride 107 108 H Carbon Dioxide 28 28 Anion Gap 7 L 7 L BUN 23 H 16 Creatinine 1.1 1.0 Creat Clearance w eGFR 50.50 56.37 POC Glucometer 96 Random Glucose 106 88 Hemoglobin A1c % Calcium 8.4 L 8.5 Phosphorus Magnesium Total Bilirubin 0.4 AST 23 ALT 30 Alkaline Phosphatase 117 Creatine Kinase Troponin I Total Protein 6.2 L Albumin 3.2 L Vitamin B12 Serum Folate TSH Free T4 Urine Color Urine Appearance Urine pH Ur Specific [place] Urine Protein Urine Glucose (UA) Urine Ketones Urine Blood Urine Nitrite Urine Bilirubin Urine Urobilinogen Ur Leukocyte Esterase Urine WBC (Auto) Urine RBC (Auto) Urine Casts (Auto) U Pathogenic Cast Auto U Epithel Cells (Auto) Urine Bacteria (Auto) RPR Titer 11/28/18 11/28/18 11/28/18 06:05 06:38 12:11 WBC RBC Hgb Hct MCV MCH MCHC RDW Plt Count MPV Absolute Neuts (auto) Neutrophils % Lymphocytes % Monocytes % Eosinophils % Basophils % Nucleated RBC % Sodium Potassium Chloride Carbon Dioxide Anion Gap BUN Creatinine Creat Clearance w eGFR POC Glucometer 73 108 Random Glucose Hemoglobin A1c % Calcium Phosphorus Magnesium Total Bilirubin AST ALT Alkaline Phosphatase Creatine Kinase Troponin I Total Protein Albumin Vitamin B12 Serum Folate TSH Free T4 Urine Color Yellow Urine Appearance Clear Urine pH 5.0 Ur Specific [place] 1.010 Urine Protein Negative Urine Glucose (UA) Negative Urine Ketones Negative Urine Blood Negative Urine Nitrite Negative Urine Bilirubin Negative Urine Urobilinogen 0.2 Ur Leukocyte Esterase Trace Urine WBC (Auto) 3 Urine RBC (Auto) 1 Urine Casts (Auto) 0 U Pathogenic Cast Auto U Epithel Cells (Auto) 1.4 Urine Bacteria (Auto) 1.0 RPR Titer Active Medications Generic Name Dose Route Start Last Admin Trade Name Freq PRN Reason Stop Dose Admin Aspirin 81 mg 11/27/18 10:00 11/28/18 10:33 Asa - PO 81 mg DAILY [facility] Administration Atorvastatin Calcium 80 mg 11/27/18 22:00 11/27/18 21:50 Lipitor - PO 80 mg HS [facility] Administration Donepezil HCl 5 mg 11/27/18 22:00 11/27/18 21:50 Aricept - PO 5 mg HS [facility] Administration Ceftriaxone Sodium 1 gm/ 50 mls @ 100 mls/hr 11/27/18 10:00 11/28/18 10:33 Dextrose IVPB 100 mls/hr DAILY [facility] Administration Protocol Insulin Aspart 1 vial 11/27/18 16:30 11/28/18 12:52 Novolog Vial Sliding Scale - SQ Not Given [facility] Protocol Losartan Potassium 100 mg 11/27/18 10:00 11/28/18 10:33 Cozaar - PO 100 mg DAILY [facility] Administration Metoprolol Succinate 25 mg 11/27/18 10:00 11/28/18 10:32 Toprol Xl - PO 25 mg DAILY [facility] Administration Multivitamins 1 each 11/27/18 10:00 11/28/18 10:35 Total B With C - PO 1 each DAILY [facility] Administration Microbiology 11/26/18 23:56 Urine - Urine Clean Catch Urine Culture - Final Contaminated: Please Repeat Condition: Stable - Instructions Diet, Activity, Other Instructions: Follow up with PMD in 48hrs after discharge follow up with Dr Han neurology in 1 week after discharge Home Care services and PT services continue with current med regimen as prescribed return to ER if change in mental status, chest pain, respiratory distress Referrals: Jim Han MD [Staff Physician] - Disposition: VNS/HOME HEALTH CARE - Home Medications Comprehensive Discharge Medication List: Ambulatory Orders Aspirin [ASA -] 81 mg PO DAILY 11/26/18 Atorvastatin Ca [Lipitor] 80 mg PO HS 11/26/18 Donepezil HCl 5 mg PO DAILY 11/26/18 Hydrochlorothiazide 25 mg PO DAILY 11/26/18 Losartan Potassium 100 mg PO DAILY 11/26/18 Metformin HCl [Glucophage] 500 mg PO BID 11/26/18 Metoprolol Succinate 25 mg PO DAILY 11/26/18 Vitamin B Complex 1 each PO DAILY 11/26/18 Ciprofloxacin 500mg tab PO BID
[2018-11-28 18:02] VITALS: BP 148/88; PULSE 82; TEMP 98
== END 2018-11-28 19:02 | disposition home health service (06) ==
LOC: JER 19:52 → EDBD 19:52 → JERBED 22:48 → J5S 11-27 03:33
PROVIDERS: ADMIT Family Medicine; ATTEND Family Medicine
PROC: 3E03329 Introduction of Other Anti-infective into Peripheral Vein, Percutaneous Approach (ICD-10-PCS; principal; 2018-11-26)
PROC: 3E0337Z Introduction of Electrolytic and Water Balance Substance into Peripheral Vein, Percutaneous Approach (ICD-10-PCS; 2018-11-26)
DX: N39.0 Urinary tract infection, site not specified (principal); N17.9 Acute kidney failure, unspecified; R53.1 Weakness; I10 Essential (primary) hypertension; E78.5 Hyperlipidemia, unspecified; E11.9 Type 2 diabetes mellitus without complications; R26.2 Difficulty in walking, not elsewhere classified; R79.89 Other specified abnormal findings of blood chemistry; E88.09 Other disorders of plasma-protein metabolism, not elsewhere classified; Z86.73 Personal history of transient ischemic attack (TIA), and cerebral infarction without residual deficits; Z79.84 Long term (current) use of oral hypoglycemic drugs; Z79.82 Long term (current) use of aspirin; W18.39XA Other fall on same level, initial encounter; Y93.89 Activity, other specified; Y92.89 Other specified places as the place of occurrence of the external cause
CPT/HCPCS: 36415; 70450-TC; 71045-TC-FY; 80048; 80053; 81003; 82550; 82607; 82746; 82962; 83036; 83735; 84100; 84439; 84443; 84484; 85025; 86593; 87086; 93005; 93010; 93880-TC; 97116-GP; 99284-25; G0378; J7030

== ENCOUNTER 2018-12-08 12:08 | Inpatient (IN) | payer OTHER ==
--- NOTE | 2018-12-08 12:23 | PDOC ---
History of Present Illness - General Stated Complaint: TREMBLING Time Seen by Provider: 12/08/18 12:20 - History of Present Illness Initial Comments: 12/08/18 12:34 The patient is a 63 year old female with a history of HTN, HLD, DM, TIA who presents for evaluation of trembling. The patient is accompanied by family who assist in providing the history. They note that the patient awoke this morning with diffuse trembling, stuttering, and difficulty speaking with her last known normal being yesterday evening. The patient was recently admitted and discharged from [facility] for a TIA discharged just over 1 week ago. She notes that she presented with similar symptoms when she was diagnosed with TIA. She otherwise denies fevers, chills, headache, SOB, chest pain, nausea, vomiting, abdominal pain, numbness, tingling, weakness, or changes with urination or bowel movements. tPA Exclusion Checklist 0-3hr - Time Elapsed Date last known well: 12/07/18 Time last known well: 20:00 Elaspsed time: Day(s) and 18 Hour(s) and 15 Minutes - Thrombolytic Therapy Candidate Is the patient eligible for Thrombolytic Therapy?: No - Relative Exclusion Criteria 0-3h Stroke severity too mild: Yes - Ineligibility reason(s) Reasons No tPA given: Outside of window - delayed arrival, See reason(s) noted above NIH Stroke Scale - Last Known Well Date/Time & Onset Date Last Known Well: 12/07/18 Time Last Known Well: 20:00 - Initial Evaluation Level of consciousness: Alert Ask patient the month and their age: Answers both correctly Ask patient to open & close eyes; make fist and let go: Obeys both correctly Best gaze (horizontal eye movement): Normal Visual field testing: No visual field loss Facial paresis (Show teeth/raise eyebrows/close eyes tight): Normal symmetrical movement Motor Function: Left Arm: Normal Motor Function: Right Arm: Normal (extends arm 90 (or 45) degrees for 10 seconds without drift Motor Function: Left Leg: Normal (extends leg 30 degrees for 5 seconds without drift) Motor Function: Right Leg: Normal (extends leg 30 degrees for 5 seconds without drift) Limb Ataxia: No ataxia Sensory(Use pinprick test arms,legs,trunk,face/side to side): Normal Best language (Describe picture, name items, read sentences): No Aphasia Dysarthria (read several words): Normal articulation Extinction and Inattention: No abnormality - Total Score NIH Stroke Scale Score: 0 Past History - Past Medical History Allergies/Adverse Reactions: Allergies Allergy/AdvReac Type Severity Reaction Status Date / Time No Known Allergies Allergy Verified 11/26/18 19:58 Home Medications: Ambulatory Orders Aspirin [ASA -] 81 mg PO DAILY 11/26/18 Atorvastatin Ca [Lipitor] 80 mg PO HS 11/26/18 Donepezil HCl 5 mg PO DAILY 11/26/18 Hydrochlorothiazide 25 mg PO DAILY 11/26/18 Insulin Glargine,Hum.rec.anlog [Basaglar Kwikpen U-100] 20 unit SQ HS 11/26/18 Losartan Potassium 100 mg PO DAILY 11/26/18 Metformin HCl [Glucophage] 500 mg PO BID 11/26/18 Metoprolol Succinate 25 mg PO DAILY 11/26/18 Vitamin B Complex 1 each PO DAILY 11/26/18 Ciprofloxacin HCl 500 mg PO BID #6 tablet 11/28/18 Vitamin B Comp W-C [Total B with C -] 1 each PO DAILY #30 tablet 11/28/18 CVA: (TIA) COPD: No Diabetes: Yes HTN: Yes Hypercholesterolemia: Yes - Suicide/Smoking/Psychosocial Hx Smoking History: Never smoked Hx Alcohol Use: No Drug/Substance Use Hx: No Substance Use Type: None Review of Systems - Review of Systems Comments:: 12/08/18 12:41 Constitutional: No fevers, chills, fatigue, malaise HEENT: No Rhinorrhea, nasal congestion, visual changes Cardiovascular: No chest pain, syncope, palpitations, lightheadedness Respiratory: No Cough, SOB, Hemoptysis, Gastrointestinal: No Abdominal pain, Nausea, Vomiting, Constipation, Diarrhea, Melena Genitourinary: No Dysuria, Frequency, Urgency, Hesitancy, Hematuria, Flank pain Musculoskeletal: No Myalgia, arthralgia Skin: No rashes, itching, bruising, pallor Neurologic: Trembling, Speech difficulty. No Headache, Dizziness, Numbness, Weakness, or Tingling Psychiatric: No Hallucinations. No SI or HI *Physical Exam - Physical Exam Comments: 12/08/18 12:44 General Appearance: Nourished. Visible myoclonus on exam. No Apparent Distress HEENT: EOMI, LUCIA. No Pharyngeal Erythema, Tonsillar Exudate, Tonsillar Erythema Neck: No Cervical Lymphadenopathy Respiratory/Chest: Lungs Clear, Normal Breath Sounds. No Crackles, Rales, Rhonchi, Wheezing Cardiovascular: Regular Rhythm, Regular Rate. No Murmur, Gallops, Rubs Gastrointestinal/Abdominal: Normal Bowel Sounds, Soft. No Guarding, Rebound, Tenderness Musculoskeletal: No CVA Tenderness Extremity: Normal Capillary Refill Integumentary: Normal Color, Dry, Warm Neurologic: bus info consultant II-XII NML intact, Fully Oriented, Alert, Normal Mood/Affect, Normal Response, Motor Strength 5/5 on the right. Motor Strength 4/5 on the left. Normal Finger to Nose and Heel to Shankar Heart Score/ECG Review #1 ECG reviewed & interpreted by me at: 12:46 12/08/18 12:46 Normal Sinus Rhythm No Acute ST Changes HR 79 QRS 84 QTc 447 ED Treatment Course - LABORATORY CBC & Chemistry Diagram: 12/08/18 12:30 12/08/18 12:30 - RADIOLOGY Radiology Studies Ordered: Category Date Time Status HEAD CT (STROKE) [CT] Stat CT Scan 12/08/18 12:20 Ordered CHEST X-RAY PORTABLE* [RAD] Stat Radiology 12/08/18 12:21 Ordered Medical Decision Making - Medical Decision Making 12/08/18 12:47 The patient is a 63 year old female with a history of HTN, HLD, DM, TIA who presents for evaluation of trembling. Differential includes but is not limited to: CVA, TIA, UTI, Infectious, Metabolic Derangement. Given the patient's history and physical exam, we will obtain a cbc, cmp, troponin, coags, ua, lipid profile, chest plain film, ekg, head CT to evaluate further. We will continue to monitor and reassess while here in the ED. 12/08/18 14:15 CBC, cmp, troponin are unremarkable. Chest plain film is unremarkable. Head CT is unremarkable as read by our radiologist. Given the patient's history of TIA and symptoms with visible myoclonus on exam, we believe she requires observation admission for further management. We discussed the case with Dr. Celestin with the admitting team who accepted the patient for admission. *DC/Admit/Observation/Transfer Diagnosis at time of Disposition: TIA (transient ischemic attack) - Discharge Dispostion Condition at time of disposition: Stable Decision to Admit order: Yes - Referrals Referrals: Dante Cardozo [Primary Care Provider] - - Patient Instructions - Post Discharge Activity
[2018-12-08] MEDS ORDERED: SODIUM CHLORIDE 1,000 ML IV SCH (12:30)
[2018-12-08 12:50] LABS: BASO % 0.9 % (0-2.0); EOS % 1.4 % (0-4.5); HEMATOCRIT 36.7 % (32.4-45.2); HEMOGLOBIN 12.3 GM/dL (10.7-15.3); LYMPH % 37.4 % (8-40); MCH 28.6 pg (25.7-33.7); MCHC 33.5 g/dl (32.0-36.0); MEAN CELL VOLUME 85.5 fl (80-96); MEAN PLT VOLUME 8.4 fl (7.5-11.1); MONO % 6.8 % (3.8-10.2); NEUT % 53.5 % (42.8-82.8); PLATELET COUNT 270 K/MM3 (134-434); RBC 4.29 M/mm3 (3.60-5.2)
[2018-12-08 13:06] LABS: INR 1.01 (0.83-1.09); PROTHROMBIN TIME (PATIENT) 11.9 SEC (9.7-13.0)
[2018-12-08 13:14] LABS: ALBUMIN 3.6 g/dl (3.4-5.0); ALK PHOS 131 U/L (45-117); ANION GAP 8 MMOL/L (8-16); BILIRUBIN,TOTAL 0.3 mg/dL (0.2-1); BLOOD UREA NITROGEN 20 mg/dL (7-18); CALCIUM 9.2 mg/dL (8.5-10.1); CHLORIDE 100 mmol/L (98-107); CHOLESTEROL 102 mg/dL (50-200); CO2 31 mmol/L (21-32); CREATININE 1.3 mg/dL (0.55-1.3); GLUCOSE,RANDOM 122 mg/dL (74-106); HDL CHOLESTEROL 36 mg/dL (40-60); POTASSIUM 3.4 mmol/L (3.5-5.1); SGOT/AST 20 U/L (15-37); SGPT/ALT 32 U/L (13-61); SODIUM 138 mmol/L (136-145); TOT PROT 7.2 g/dl (6.4-8.2); TRIGLYCERIDES 99 mg/dL (0-150)
--- NOTE | 2018-12-08 13:21 | PDOC ---
Documentation entered by Lucia Zavaleta SCRIBE, acting as scribe for Heber Jaquez MD. Heber Jaquez MD: This documentation has been prepared by the Meghann cee Amanda, SCRIBE, under my direction and personally reviewed by me in its entirety. I confirm that the documentation accurately reflects all work, treatment, procedures, and medical decision making performed by me. Attending Attestation - Resident Resident Name: Jimbo Oropeza - ED Attending Attestation I have performed the following: I have examined & evaluated the patient, The case was reviewed & discussed with the resident, I agree w/resident's findings & plan, Exceptions are as noted - HPI HPI: 12/08/18 12:20 The patient is a 63 year old female with a significant past medical history of DM, HTN, HLD, recent CVA, discharged from [facility] on 11.28.18, who presents to the ED for evaluation of stuttered speech and spasming of her arms and neck today. Pt states that she awoke with difficulty speaking this morning. Also endorses intermittent jerking motion of her face and neck. Denies any new unilateral weakness/numbness. The patient states she presented similarly to [facility] 2 weeks ago and was found to have a stroke. She denies any other complaints. She denies CP, SOB, KIM. She denies dizziness, lightheadedness, palpitations. She denies nausea, vomiting, diarrhea. Allergies: NDKA - Physicial Exam PE: 12/08/18 13:05 GENERAL: Awake, alert, and fully oriented, in no acute distress. HEAD: No signs of trauma EYES: PERRLA, EOMI, sclera anicteric, conjunctiva clear ENT: Auricles normal inspection, hearing grossly normal, nares patent, oropharynx clear without exudates. Moist mucosa NECK: Nontender, no stepoffs, Normal ROM, supple, no lymphadenopathy, JVD, or masses LUNGS: Breath sounds equal, clear to auscultation bilaterally. No wheezes, and no crackles HEART: Regular rate and rhythm, normal S1 and S2, no murmurs, rubs or gallops ABDOMEN: Soft, nontender, normoactive bowel sounds. No guarding, no rebound. No masses EXTREMITIES: Normal range of motion, no edema. No clubbing or cyanosis. No cords, erythema, or tenderness NEUROLOGICAL: + myoclonic jerks of face, neck, and arms, Cranial nerves II through XII intact. slightly diminished strength LUE, Normal speech, normal gait , normal cerebellar function SKIN: Warm, Dry, normal turgor, no rashes or lesions noted." - Medical Decision Making 12/08/18 13:12 63 F with myoclonic jerks and difficulty speaking. Pt was diagnosed with stroke 2 weeks ago when she presented to [facility] with same symptoms. Pt with LUE weakness, unclear if new or residual from prior CVA. Will evaluate for CVA vs partial seizure. - Labs - CT head - neuro c/s NIH Stroke Scale - Last Known Well Date/Time & Onset Date Last Known Well: 12/07/18 Time Last Known Well: 22:00 - Initial Evaluation Level of consciousness: Alert Ask patient the month and their age: Answers both correctly Ask patient to open & close eyes; make fist and let go: Obeys both correctly Best gaze (horizontal eye movement): Normal Visual field testing: No visual field loss Facial paresis (Show teeth/raise eyebrows/close eyes tight): Normal symmetrical movement Motor Function: Left Arm: Drift Motor Function: Right Arm: Normal (extends arm 90 (or 45) degrees for 10 seconds without drift Motor Function: Left Leg: Normal (extends leg 30 degrees for 5 seconds without drift) Motor Function: Right Leg: Normal (extends leg 30 degrees for 5 seconds without drift) Limb Ataxia: No ataxia Sensory(Use pinprick test arms,legs,trunk,face/side to side): Normal Best language (Describe picture, name items, read sentences): No Aphasia Dysarthria (read several words): Mild to moderate slurring of words Extinction and Inattention: No abnormality - Total Score NIH Stroke Scale Score: 2
--- NOTE | 2018-12-08 16:03 | HP ---
Admitting History and Physical - Admission Chief Complaint: came in muscle twitches and stuttering speech since today History of Present Illness: The patient is a 63 year old female with a history of HTN, HLD, DM, TIA who presents for evaluation of trembling. The patient is accompanied by family who assist in providing the history. They note that the patient awoke this morning with diffuse trembling, stuttering, and difficulty speaking with her last known normal being yesterday evening. The patient was recently admitted and discharged from [facility] for a TIA discharged just over 1 week ago. She notes that she presented with similar symptoms when she was diagnosed with TIA. She otherwise denies fevers, chills, headache, SOB, chest pain, nausea, vomiting, abdominal pain, numbness, tingling, weakness, or changes with urination or bowel movements. 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) Cardiovascular: Yes: HTN, Hyperlipdemia Endocrine: Yes: Diabetes Mellitus - Smoking History Smoking history: Never smoked - Alcohol/Substance Use Hx Alcohol Use: No - Social History History of Recent Travel: No Home Medications - Allergies Allergies/Adverse Reactions: Allergies Allergy/AdvReac Type Severity Reaction Status Date / Time No Known Allergies Allergy Verified 11/26/18 19:58 - Home Medications Home Medications: Ambulatory Orders Aspirin [ASA -] 81 mg PO DAILY 11/26/18 Atorvastatin Ca [Lipitor] 80 mg PO HS 11/26/18 Donepezil HCl 5 mg PO DAILY 11/26/18 Hydrochlorothiazide 25 mg PO DAILY 11/26/18 Insulin Glargine,Hum.rec.anlog [Basaglar Kwikpen U-100] 20 unit SQ HS 11/26/18 Losartan Potassium 100 mg PO DAILY 11/26/18 Metformin HCl [Glucophage] 500 mg PO BID 11/26/18 Metoprolol Succinate 25 mg PO DAILY 11/26/18 Vitamin B Complex 1 each PO DAILY 11/26/18 Ciprofloxacin HCl 500 mg PO BID #6 tablet 11/28/18 Vitamin B Comp W-C [Total B with C -] 1 each PO DAILY #30 tablet 11/28/18 Review of Systems - Review of Systems Constitutional: reports: Other (myoclonic jerks) Physical Examination Vital Signs: Vital Signs Temperature 98.9 F 12/08/18 12:25 Pulse Rate 93 H 12/08/18 12:25 Respiratory Rate 18 12/08/18 12:25 Blood Pressure 136/102 H 12/08/18 12:25 O2 Sat by Pulse Oximetry (%) 98 12/08/18 12:41 Constitutional: Yes: Calm Cardiovascular: Yes: Regular Rate and Rhythm, S1, S2 Respiratory: Yes: CTA Bilaterally Gastrointestinal: Yes: Normal Bowel Sounds, Soft Edema: No Neurological: Yes: Other (stuttering speech myoclonic facial and hand twitches) Labs: CBC, BMP 12/08/18 12:30 12/08/18 12:30 Imaging - Results Chest X-ray: Report Reviewed (no acute pathology) Cat Scan: Report Reviewed (no acute hemorhage) Problem List - Problems (1) TIA (transient ischemic attack) Assessment/Plan: neurology eval NPO for now erica george for swallow check magnesium potassium repleted eeg ativan prn Code(s): G45.9 - TRANSIENT CEREBRAL ISCHEMIC ATTACK, UNSPECIFIED (2) Diabetes mellitus Assessment/Plan: sliding sclae NPO for now bgm checkhold metformin Code(s): E11.9 - TYPE 2 DIABETES MELLITUS WITHOUT COMPLICATIONS Qualifiers: Diabetes mellitus type: type 2 (3) HLD (hyperlipidemia) Assessment/Plan: statin lipid panel Code(s): E78.5 - HYPERLIPIDEMIA, UNSPECIFIED (4) HTN (hypertension) Assessment/Plan: iv lopressor prn while NPO hold diuretiecs Code(s): I10 - ESSENTIAL (PRIMARY) HYPERTENSION
[2018-12-08] MEDS ORDERED: LORazepam 2 MG/ML SDV VIAL IVPUSH PRN (16:11)
--- NOTE | 2018-12-08 16:19 | EKG ---
Test Reason : Blood Pressure : / mmHG Vent. Rate : 079 BPM Atrial Rate : 079 BPM P-R Int : 152 ms QRS Dur : 084 ms QT Int : 390 ms P-R-T Axes : 071 042 072 degrees QTc Int : 447 ms NORMAL SINUS RHYTHM NORMAL ECG WHEN COMPARED WITH ECG OF 26-NOV-2018 21:18, NO SIGNIFICANT CHANGE WAS FOUND Confirmed by KARLO GREGORY MD ([id number]) on 12/08/2018 4:19:01 PM Referred By: Confirmed By:KARLO GREGORY MD
[2018-12-08] MEDS ORDERED: METOPROLOL TARTRATE 5 MG/5 ML VIAL IVPUSH PRN (16:45)
[2018-12-08] MEDS: SODIUM CHLORIDE 1,000 ML IV SCH (16:55)
[2018-12-08] MEDS ORDERED: KCL 10 MEQ IVPB 10 MEQ/100 ML INFUS.BAG IVPB ONE ×2 (17:06→20:14)
[2018-12-08] MEDS: INSULIN SLIDING SCALE (NOVOLOG) 1 VIAL SQ SCH (17:07)
[2018-12-08] MEDS: KCL 10 MEQ IVPB 10 MEQ/100 ML INFUS.BAG IVPB SCH ×2 (17:40→20:10)
--- NOTE | 2018-12-08 17:49 | CON.CARD ---
Consult Consult Specialty:: Cardiology Reason for Consultation:: Tremor. HTN. Recent TIA - History of Present Illness Chief Complaint: Tremor History of Present Illness: This is A 63 year old female with a PMH of HTN, HLD, DM, and a recent TIA treated at [facility] about one week ago. The patient awoke this morning with diffuse, intermittent trebling and difficulty speaking. She denies chest pain, palpitations, and ROUSE. Head CT does not reveal acute pathology. EKG NSR at 79 BPM with normal intervals, normal axis, and NSSTTW changes. Trop x1 neg. 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) Cardio/Vascular: Yes: HTN, Hyperlipdemia Endocrine: Yes: Diabetes Mellitus - Alcohol/Substance Use Hx Alcohol Use: No - Smoking History Smoking history: Never smoked - Social History History of Recent Travel: No Home Medications - Allergies Allergies/Adverse Reactions: Allergies Allergy/AdvReac Type Severity Reaction Status Date / Time No Known Allergies Allergy Verified 11/26/18 19:58 - Home Medications Home Medications: Ambulatory Orders Aspirin [ASA -] 81 mg PO DAILY 11/26/18 Atorvastatin Ca [Lipitor] 80 mg PO HS 11/26/18 Donepezil HCl 5 mg PO DAILY 11/26/18 Hydrochlorothiazide 25 mg PO DAILY 11/26/18 Insulin Glargine,Hum.rec.anlog [Basaglar Kwikpen U-100] 20 unit SQ HS 11/26/18 Losartan Potassium 100 mg PO DAILY 11/26/18 Metformin HCl [Glucophage] 500 mg PO BID 11/26/18 Metoprolol Succinate 25 mg PO DAILY 11/26/18 Vitamin B Complex 1 each PO DAILY 11/26/18 Ciprofloxacin HCl 500 mg PO BID #6 tablet 11/28/18 Vitamin B Comp W-C [Total B with C -] 1 each PO DAILY #30 tablet 11/28/18 Vital Signs: Vital Signs Temperature 98.5 F 12/08/18 16:02 Pulse Rate 93 H 12/08/18 16:02 Respiratory Rate 18 12/08/18 16:02 Blood Pressure 140/80 12/08/18 16:02 O2 Sat by Pulse Oximetry (%) 98 12/08/18 12:41 Constitutional: Yes: Well Nourished Eyes: Yes: WNL HENT: Yes: WNL Neck: Yes: WNL Respiratory: Yes: CTA Bilaterally Gastrointestinal: Yes: Soft Cardiovascular: Yes: Regular Rate and Rhythm Heart Sounds: Yes: S1, S2 (No MRHG) Extremities: Yes: WNL Edema: No Neurological: Yes: Alert, Oriented (Intermittent total body shaking and facial TICs) - Other Data Labs, Other Data: CBC, BMP 12/08/18 12:30 12/08/18 12:30 INR, PTT INR 1.01 (0.83-1.09) 12/08/18 12:30 Troponin, BNP 12/08/18 12:30 Troponin I < 0.02 Troponin, BNP 12/08/18 12:30 Troponin I < 0.02 Assessment/Plan 63 year old female with a PMH of HTN, HLD, DM, and a recent TIA treated at [facility] about one week ago. The patient awoke this morning with diffuse, intermittent trebling and difficulty speaking. She denies chest pain, palpitations, and ROUSE. Head CT does not reveal acute pathology. EKG NSR at 79 BPM with normal intervals, normal axis, and NSSTTW changes. Trop x1 neg. No evidence for cardiac involvement here. Occasionally arrhythmias can leads to tonic/clonic activity but those scenarios are in the setting of LOC which is not the case here.
[2018-12-08 17:55] LABS: MAGNESIUM 2.2 mg/dL (1.8-2.4)
--- NOTE | 2018-12-08 18:38 | CONSULT ---
Consult - text type - Consultation Consultation Note: NEUROLOGY CONSULT GREATLY APPRECIATED: Events reviewed and discussed with Dr. Dupree, ED resident and NEHAL Hunter. This 63 yo RH female lives with her family. PMHX includes HTN, HLD, DM, reported previous TIA last year and "dementia." Meds include: ASA, atorvastatin, donepezil 5 mg prescribed by whom?), HCTZ, insulin, losartan, metformin, metoprolol. Here after awoken this AM by sudden uncontrolled movements of the arms and unable to speak appropriately, which has persisted all day. Last seen in ED 11/27/18 for generalized weakness and fall, attributed to UTI and prescribed antibiotics. She had CT of the head, here at [facility] 11/26/18 for uncertain indications. Since then, she was apparentlt admitted to [facility] for facial twitching. Pt admits to cough. Head CT (reviewed): extensive periventricular and supratentorial ischemic changes. 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 This study is unchanged from the abovementioned study of 11/26/18. HAMILTON: Cor reg. No bruit. Neck supple. NEURO: Mentation/Speech: Ox [facility]. "December" or "March." 2019. Periods of high-pitched squealing and hiccup. Some paraphrasic and phonic errors. CNII-CNXII: EOM intact without nystagmus. Full kate appreciated. No facial. Motor: No obvious drift. Strength normal. Involuntary (?) synkinetic mvmt's R lip, R lid, and myoclonic jerks of the hands however suppressed while at rest. Reflexes normal, except AJ's. Plantars silent. Coordination: No FTN dystaxia. Sensation: Normal to vibration. Romberg - Gait: Erect, normal stride. 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 R/O seizure Suggest: R/O UTI or other source of infection Order B12, TSH, RPR Obtain prior history re: CVA's, recent CT of head and recent [facility] admission. MRI of brain (C-) Carotid duplex doppler Admit for evaluation and observation. No specific neuro Rx at this time. Thank you very much, Jim Han MD
[2018-12-08] MEDS: HEPARIN NA (PORCINE) 5,000 UNITS/ML 1ML VIAL SQ SCH (23:10)
[2018-12-09] MEDS ORDERED: KCL 10 MEQ IVPB 10 MEQ/100 ML INFUS.BAG IVPB ONE ×2 (00:17→02:46)
--- NOTE | 2018-12-09 00:30 | HOSP ---
Physical Examination Vital Signs: Vital Signs Temperature 98.5 F 12/08/18 16:02 Pulse Rate 93 H 12/08/18 16:02 Respiratory Rate 18 12/08/18 16:02 Blood Pressure 140/80 12/08/18 16:02 O2 Sat by Pulse Oximetry (%) 96 12/08/18 16:02 Labs: CBC, BMP 12/08/18 12:30 12/08/18 12:30 Hospitalist Encounter Outcome: Called by ER physician that [facility] called with MRI of brain results revealing an aute infarct of the posterior frontal. Chart reviewed. Patient was evaluated by Neurology- Dr. Han in the ER earlier today and neuro workup in progress. Neuro checks every 2 hours ordered. Currently she is not hypertensive. Permissive hypertension in setting of acute CVA. She is maintained on heparin sq injections. Recommend adding asa and atorvastatin. Neurology will follow in am.
[2018-12-09] MEDS: KCL 10 MEQ IVPB 10 MEQ/100 ML INFUS.BAG IVPB SCH (02:50)
[2018-12-09 06:18] LABS: BASO % 0.6 % (0-2.0); EOS % 1.6 % (0-4.5); HEMATOCRIT 34.9 % (32.4-45.2); HEMOGLOBIN 11.8 GM/dL (10.7-15.3); MCH 28.6 pg (25.7-33.7); MCHC 33.7 g/dl (32.0-36.0); MEAN CELL VOLUME 84.7 fl (80-96); MEAN PLT VOLUME 8.1 fl (7.5-11.1); MONO % 6.3 % (3.8-10.2); NEUT % 46.5 % (42.8-82.8); PLATELET COUNT 240 K/MM3 (134-434); RBC 4.12 M/mm3 (3.60-5.2); RDW 15.2 % (11.6-15.6); WHITE BLOOD COUNT 6.7 K/mm3 (4.0-10.0)
[2018-12-09 06:40] LABS: INR 0.99 (0.83-1.09); PROTHROMBIN TIME (PATIENT) 11.7 SEC (9.7-13.0)
[2018-12-09 06:43] LABS: ACTIVATED PTT 33.8 SECONDS (25.2-36.5)
[2018-12-09] MEDS: INSULIN SLIDING SCALE (NOVOLOG) 1 VIAL SQ SCH ×3 (06:48→17:49)
[2018-12-09 06:54] LABS: ALBUMIN 3.2 g/dl (3.4-5.0); ALK PHOS 122 U/L (45-117); ANION GAP 7 MMOL/L (8-16); BILIRUBIN,TOTAL 0.4 mg/dL (0.2-1); BLOOD UREA NITROGEN 18 mg/dL (7-18); CALCIUM 8.7 mg/dL (8.5-10.1); CHLORIDE 104 mmol/L (98-107); CO2 28 mmol/L (21-32); CREATININE 1.1 mg/dL (0.55-1.3); GLUCOSE,RANDOM 90 mg/dL (74-106); MAGNESIUM 1.9 mg/dL (1.8-2.4); POTASSIUM 3.8 mmol/L (3.5-5.1); SGOT/AST 13 U/L (15-37); SGPT/ALT 25 U/L (13-61); SODIUM 139 mmol/L (136-145); TOT PROT 6.4 g/dl (6.4-8.2)
[2018-12-09] MEDS: HEPARIN NA (PORCINE) 5,000 UNITS/ML 1ML VIAL SQ SCH ×2 (10:11→22:31)
--- NOTE | 2018-12-09 10:50 | CONSULT ---
Admitting History and Physical - Primary Care Physician PCP: Sabi Dupree - Admission History of Present Illness: Chart reviewed and pt examined. Seen in ER, eating her lunch. Intermittent sudden jerky movements/twitching noted in face and body. Pt verbal, appropriate for me, o x 3. 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) Cardiovascular: Yes: HTN, Hyperlipdemia Endocrine: Yes: Diabetes Mellitus - Smoking History Smoking history: Never smoked - Alcohol/Substance Use Hx Alcohol Use: No - Social History History of Recent Travel: No History - Admission Reason For Visit: TIA - Diagnostics X-ray: Report Reviewed CT Scan: Report Reviewed - General Mental Status: Alert and Oriented, Awake and Alert, Able to Follow Commands Attention: Intact Ability to Follow Directions: Excellent Head/Neck Control: WFL - Hearing Hearing: Functional Speech Evaluation - Communication Primary Language: ANDORRAN Communication: Yes: Within Normal Limits - Speech Production Able to Make Needs Known: Yes: WNL - Speech Characteristics Voice Loudness: Normal Voice Pitch: Yes: Normal Voice Phonatory-based Quality: Yes: Normal Speech Pattern: Normal Speech Clarity: < 100% Nasal Resonance: Normal Articulation: Yes: Imprecise (intermittent twitches affected clarity) - Language/Auditory Comprehension Follows: Yes: 1 Stage Simple Commands Observation: Able to respond to yes/no queries: Yes, Yes/No Confusion: No, Comprehends Conversational Speech: Yes - Language/Verbal Expression Able to Respond to Simple Queries: Yes: WNL Able to Communicate Wants and Needs: Yes: WNL Functional Communication Status: Yes: WNL - Swallow Evaluation/Bedside Assessment Oral Secretions: Yes: WFL Dentition: Yes: Adequate Facial Symmetry at Rest: Facial Droop Left (mild at rest) Facial Movement: Involuntary Against Resistance Opening: Normal Against Resistance Closing: Normal Pucker Lips: Normal Smile: Normal Lingual Movement: Normal, Symmetric Lingual Speed of Movement: Normal Lingual Movement Strgth Against Opposition: Normal Lingual Movement Characteristics: Normal Velopharyngeal Movement: Normal Laryngeal Elevation: WFL Laryngeal Movement: Able to Palpate Rate of Intake: WFL Bolus Size: WFL Labial Seal: WFL Chewing: Impaired (mildly slow/labored) Oral Prep Time: Increased Pocketing: None Timing of Swallow: WFL Coughing/Throat Clear: No Change in Voice: No Recommendations - Speech Evaluation, Impression/Plan Impression: Verbal, oriented, Body/facial jerks/twitches. Mild left facial at rest. Seen with food tray in ER, eating independently, slowly but overtly efficiently. Mastication slow/labored vs careful sec to twitches? -denies difficulty. 3 0z water test (-) - Dysphagia Impressions/Plan Dysphagia Impressions: Mild Impairment *Silent aspiration: cannot be R/O at bedside Dysphagia Treatment Plan: Small Bites, Chin Tuck/Down, Clear Pocket Food, Trial Feedings, Safe Rate, 1/2 tsp. at a time, OOB for meals, OOB for 1 h. after meals Recommendations: Modified Barium Swallow (if cough, congestion,fever) - Recommendations Diet Consistency: Regular (soft, easy to chew) Medication Administration: Whole with water Liquids: Thin Liquids
--- NOTE | 2018-12-09 14:35 | PN ---
Progress Note, Physician Chief Complaint: pateint seen and examiend no more myoclonic jerks MRI brain noted possible subacute infarct carotid doppler ordered - Current Medication List Current Medications: Active Medications Heparin Sodium (Porcine) (Heparin -) 5,000 unit SQ BID [facility] Last Admin: 12/09/18 10:11 Dose: 5,000 unit Sodium Chloride (Normal Saline -) 1,000 mls @ 83 mls/hr IV ASDIR [facility] Last Admin: 12/08/18 16:55 Dose: 83 mls/hr Insulin Aspart (Novolog Vial Sliding Scale -) 1 vial SQ TIDAC [facility]; Protocol Last Admin: 12/09/18 11:52 Dose: Not Given Metoprolol Tartrate (Lopressor Injection -) 5 mg IVPUSH Q6H PRN PRN Reason: HYPERTENSION - Objective Vital Signs: Vital Signs Temperature 98.5 F 12/08/18 16:02 Pulse Rate 82 12/09/18 07:26 Respiratory Rate 15 12/09/18 07:26 Blood Pressure 134/78 12/09/18 07:26 O2 Sat by Pulse Oximetry (%) 99 12/09/18 07:26 Constitutional: Yes: Calm Cardiovascular: Yes: Regular Rate and Rhythm, S1, S2 Respiratory: Yes: CTA Bilaterally Gastrointestinal: Yes: Normal Bowel Sounds, Soft Edema: No Neurological: Yes: Alert Labs: CBC, BMP 12/09/18 05:30 12/09/18 05:30 INR, PTT INR 0.99 (0.83-1.09) 12/09/18 05:30 Problem List - Problems (1) TIA (transient ischemic attack) Assessment/Plan: neurology eval noted erica george saw patient regular diet thin liquids soft check magnesium potassium repleted eeg carotid doppler MRI shows possible subacute infarct Code(s): G45.9 - TRANSIENT CEREBRAL ISCHEMIC ATTACK, UNSPECIFIED (2) Diabetes mellitus Assessment/Plan: sliding scale check [id number] bgm check hold metformin Code(s): E11.9 - TYPE 2 DIABETES MELLITUS WITHOUT COMPLICATIONS Qualifiers: Diabetes mellitus type: type 2 (3) HLD (hyperlipidemia) Assessment/Plan: statin lipid panel Code(s): E78.5 - HYPERLIPIDEMIA, UNSPECIFIED (4) HTN (hypertension) Assessment/Plan: losartan Code(s): I10 - ESSENTIAL (PRIMARY) HYPERTENSION
[2018-12-09] MEDS: SODIUM CHLORIDE 1,000 ML IV SCH (17:48)
[2018-12-09 18:38] LABS: URINE APPEARANCE CLEAR; URINE BILIRUBIN NEGATIVE (NEGATIVE); URINE COLOR YELLOW; URINE GLUCOSE (UA) NEGATIVE (NEGATIVE); URINE KETONE NEGATIVE (NEGATIVE); URINE LEUK ESTERASE NEGATIVE (NEGATIVE); URINE NITRITE NEGATIVE (NEGATIVE); URINE PROTEIN NEGATIVE (NEGATIVE); URINE UROBILINOGEN 0.2 mg/dL (0.2-1.0)
[2018-12-09] MEDS ORDERED: VALPROATE SODIUM 500 MG/5 ML VIAL IVPB ONE (20:11)
--- NOTE | 2018-12-09 20:24 | PN ---
Progress Note (short form) - Note Progress Note: NEUROLOGY FOLLOW-UP: Events and MRI reviewed. Patient examined. Patient relates a prior episoce of "shaking" that occurred last year, lasted a few days, and resolved without medical attention. Denies headache or LOC. Claims she can ambulate normally even when shaking, MRI of brain (reviewed): Extensive, chronic, B/L deep infarcts and diffuse microvascular changes B12, TSH, RPR, CMP: normal or neg. U/A normal without sign of infection EXAM: No bruits. Cor reg. NEURO: Awake, alert. Ox 3. Cooperative. Fluent speech. Mil;d OMS Decreased facial mov'ts today and hiccoughs. However still displays frequent myoclonic jerks of the hands and arms without obscuration of consciousness. No drift. Normal strength Gait stable. 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 SUGGEST: Valproic acid 500 mg IV tonight them Depakote 500 mg PO q 12 hrs Await carotid duplex. Cardiology/Halter: R/O embologenic arrhythmia. Thank you very much, Jim Han MD
[2018-12-09] MEDS: ATORVASTATIN CA 80 MG TABLET (FP) PO SCH (22:31)
[2018-12-10 01:16] VITALS: BMI 27.1
[2018-12-10] MEDS: DIVALPROEX SODIUM 500 MG TABLET E.C. PO SCH ×3 (01:29→21:13)
[2018-12-10] MEDS: INSULIN SLIDING SCALE (NOVOLOG) 1 VIAL SQ SCH ×3 (06:51→16:58)
[2018-12-10 07:02] LABS: ALK PHOS 106 U/L (45-117); ANION GAP 6 MMOL/L (8-16); BILIRUBIN,TOTAL 0.4 mg/dL (0.2-1); BLOOD UREA NITROGEN 13 mg/dL (7-18); CALCIUM 8.6 mg/dL (8.5-10.1); CHLORIDE 106 mmol/L (98-107); CO2 30 mmol/L (21-32); CREATININE 1.1 mg/dL (0.55-1.3); GLUCOSE,RANDOM 90 mg/dL (74-106); POTASSIUM 3.6 mmol/L (3.5-5.1); SGOT/AST 12 U/L (15-37); SGPT/ALT 20 U/L (13-61); SODIUM 142 mmol/L (136-145); TOT PROT 5.8 g/dl (6.4-8.2)
[2018-12-10] MEDS ORDERED: PT OWN MED DRAWER 7, Y5N ONE ×2 (08:48→21:04)
[2018-12-10] MEDS: LOSARTAN POTASSIUM 50 MG TABLET (FP) PO SCH (09:29)
[2018-12-10] MEDS: ASPIRIN 81 MG CHEWABLE TABLETS PO SCH (09:30)
[2018-12-10] MEDS: HEPARIN NA (PORCINE) 5,000 UNITS/ML 1ML VIAL SQ SCH ×2 (09:31→21:13)
--- NOTE | 2018-12-10 13:03 | PN ---
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 - Current Medication List Current Medications: Active Medications Aspirin (Asa -) 81 mg PO DAILY [facility] Last Admin: 12/10/18 09:30 Dose: 81 mg Atorvastatin Calcium (Lipitor -) 80 mg PO HS [facility] Last Admin: 12/09/18 22:31 Dose: 80 mg Divalproex Sodium (Depakote -) 500 mg PO BID [facility] Last Admin: 12/10/18 09:30 Dose: 500 mg Heparin Sodium (Porcine) (Heparin -) 5,000 unit SQ BID [facility] Last Admin: 12/10/18 09:31 Dose: 5,000 unit Sodium Chloride (Normal Saline -) 1,000 mls @ 83 mls/hr IV ASDIR [facility] Last Admin: 12/09/18 17:48 Dose: 83 mls/hr Insulin Aspart (Novolog Vial Sliding Scale -) 1 vial SQ TIDAC [facility]; Protocol Last Admin: 12/10/18 11:10 Dose: 2 units Losartan Potassium (Cozaar -) 50 mg PO DAILY [facility] Last Admin: 12/10/18 09:29 Dose: 50 mg Metoprolol Tartrate (Lopressor Injection -) 5 mg IVPUSH Q6H PRN PRN Reason: HYPERTENSION - Objective Vital Signs: Vital Signs Temperature 98.3 F 12/10/18 10:00 Pulse Rate 84 12/10/18 10:00 Respiratory Rate 18 12/10/18 10:00 Blood Pressure 142/81 12/10/18 10:00 O2 Sat by Pulse Oximetry (%) 99 12/10/18 09:00 Constitutional: Yes: No Distress, Calm Eyes: Yes: Conjunctiva Clear HENT: Yes: Atraumatic Cardiovascular: Yes: Regular Rate and Rhythm Respiratory: Yes: Regular, CTA Bilaterally Gastrointestinal: Yes: Normal Bowel Sounds, Soft Musculoskeletal: Yes: Muscle Weakness Edema: No Neurological: Yes: Alert, Oriented Psychiatric: Yes: Alert, Oriented Labs: CBC, BMP 12/09/18 05:30 12/10/18 05:30 INR, PTT INR 0.99 (0.83-1.09) 12/09/18 05:30 Problem List - Problems (1) TIA (transient ischemic attack) Assessment/Plan: -neurology and cardiology on board -tele monitoring -pending Carotid doppler -MRI shows possible subacute infarct Code(s): G45.9 - TRANSIENT CEREBRAL ISCHEMIC ATTACK, UNSPECIFIED (2) Diabetes mellitus Assessment/Plan: -[facility] ACHS -ISS -HgA1c 6.7% Code(s): E11.9 - TYPE 2 DIABETES MELLITUS WITHOUT COMPLICATIONS Qualifiers: Diabetes mellitus type: type 2 (3) HLD (hyperlipidemia) Assessment/Plan: -continue Atorvastatin Code(s): E78.5 - HYPERLIPIDEMIA, UNSPECIFIED (4) HTN (hypertension) Assessment/Plan: -continue Metoprolol -low Na diet Code(s): I10 - ESSENTIAL (PRIMARY) HYPERTENSION Assessment/Plan see problem list dvt ppx
[2018-12-10] MEDS: SODIUM CHLORIDE 1,000 ML IV SCH (13:09)
[2018-12-10] MEDS: ATORVASTATIN CA 80 MG TABLET (FP) PO SCH (21:13)
[2018-12-11] MEDS: INSULIN SLIDING SCALE (NOVOLOG) 1 VIAL SQ SCH ×3 (06:26→17:23)
[2018-12-11 06:38] LABS: ALBUMIN 2.9 g/dl (3.4-5.0); ALK PHOS 104 U/L (45-117); ANION GAP 7 MMOL/L (8-16); BILIRUBIN,TOTAL 0.3 mg/dL (0.2-1); BLOOD UREA NITROGEN 13 mg/dL (7-18); CALCIUM 8.3 mg/dL (8.5-10.1); CHLORIDE 108 mmol/L (98-107); CO2 27 mmol/L (21-32); CREATININE 0.9 mg/dL (0.55-1.3); GLUCOSE,RANDOM 95 mg/dL (74-106); POTASSIUM 3.4 mmol/L (3.5-5.1); SGOT/AST 14 U/L (15-37); SGPT/ALT 24 U/L (13-61); SODIUM 142 mmol/L (136-145); TOT PROT 5.9 g/dl (6.4-8.2)
[2018-12-11 07:25] LABS: HEMATOCRIT 34.4 % (32.4-45.2); HEMOGLOBIN 11.7 GM/dL (10.7-15.3); MCH 28.9 pg (25.7-33.7); MEAN CELL VOLUME 85.1 fl (80-96); MEAN PLT VOLUME 8.8 fl (7.5-11.1); PLATELET COUNT 214 K/MM3 (134-434); RBC 4.05 M/mm3 (3.60-5.2); RDW 14.9 % (11.6-15.6); WHITE BLOOD COUNT 6.5 K/mm3 (4.0-10.0)
[2018-12-11] MEDS ORDERED: PT OWN MED DRAWER 7, Y5N ONE ×2 (09:01→21:43)
[2018-12-11] MEDS: SODIUM CHLORIDE 1,000 ML IV SCH (09:29)
[2018-12-11] MEDS: LOSARTAN POTASSIUM 50 MG TABLET (FP) PO SCH (09:30)
[2018-12-11] MEDS: DIVALPROEX SODIUM 500 MG TABLET E.C. PO SCH ×2 (09:30→21:49)
[2018-12-11] MEDS: HEPARIN NA (PORCINE) 5,000 UNITS/ML 1ML VIAL SQ SCH ×2 (09:30→21:49)
[2018-12-11] MEDS: ASPIRIN 81 MG CHEWABLE TABLETS PO SCH (09:30)
--- NOTE | 2018-12-11 11:11 | PN ---
Progress Note, Physician - Current Medication List Current Medications: Active Medications Aspirin (Asa -) 81 mg PO DAILY [facility] Last Admin: 12/11/18 09:30 Dose: 81 mg Atorvastatin Calcium (Lipitor -) 80 mg PO HS [facility] Last Admin: 12/10/18 21:13 Dose: 80 mg Divalproex Sodium (Depakote -) 500 mg PO BID [facility] Last Admin: 12/11/18 09:30 Dose: 500 mg Heparin Sodium (Porcine) (Heparin -) 5,000 unit SQ BID [facility] Last Admin: 12/11/18 09:30 Dose: 5,000 unit Sodium Chloride (Normal Saline -) 1,000 mls @ 83 mls/hr IV ASDIR [facility] Last Admin: 12/11/18 09:29 Dose: Not Given Insulin Aspart (Novolog Vial Sliding Scale -) 1 vial SQ TIDAC [facility]; Protocol Last Admin: 12/11/18 06:26 Dose: Not Given Losartan Potassium (Cozaar -) 50 mg PO DAILY [facility] Last Admin: 12/11/18 09:30 Dose: 50 mg Metoprolol Tartrate (Lopressor Injection -) 5 mg IVPUSH Q6H PRN PRN Reason: HYPERTENSION - Objective Vital Signs: Vital Signs Temperature 97.6 F 12/11/18 06:00 Pulse Rate 62 12/11/18 06:00 Respiratory Rate 18 12/11/18 06:00 Blood Pressure 155/55 L 12/11/18 06:00 O2 Sat by Pulse Oximetry (%) 98 12/10/18 21:00 Labs: CBC, BMP 12/11/18 05:30 12/11/18 05:30 INR, PTT INR 0.99 (0.83-1.09) 12/09/18 05:30 Problem List - Problems (1) CVA (cerebral vascular accident) Assessment/Plan: -neurology and cardiology on board -tele monitoring -pending Carotid doppler -MRI shows possible subacute infarct -Carotid and holter -dc planning Code(s): I63.9 - CEREBRAL INFARCTION, UNSPECIFIED (2) Diabetes mellitus Assessment/Plan: -[facility] -HgA1c 6.7% Code(s): E11.9 - TYPE 2 DIABETES MELLITUS WITHOUT COMPLICATIONS Qualifiers: Diabetes mellitus type: type 2 (3) HLD (hyperlipidemia) Assessment/Plan: -continue Atorvastatin Code(s): E78.5 - HYPERLIPIDEMIA, UNSPECIFIED (4) HTN (hypertension) Assessment/Plan: -continue Metoprolol -low Na diet Code(s): I10 - ESSENTIAL (PRIMARY) HYPERTENSION
[2018-12-11] MEDS ORDERED: POTASSIUM CHLORIDE TABS 10 MEQ TABLET.ER (FP) PO ONE ×2 (14:43→16:30)
[2018-12-11] MEDS ORDERED: POTASSIUM CHLORIDE TABS 20 MEQ TABLET.ER (FP) PO ONE (16:30)
[2018-12-11] MEDS: ATORVASTATIN CA 80 MG TABLET (FP) PO SCH (21:49)
[2018-12-12] MEDS: INSULIN SLIDING SCALE (NOVOLOG) 1 VIAL SQ SCH ×3 (06:32→16:59)
[2018-12-12 06:36] LABS: ALK PHOS 101 U/L (45-117); ANION GAP 8 MMOL/L (8-16); BILIRUBIN,TOTAL 0.3 mg/dL (0.2-1); BLOOD UREA NITROGEN 13 mg/dL (7-18); CALCIUM 8.3 mg/dL (8.5-10.1); CHLORIDE 111 mmol/L (98-107); CO2 26 mmol/L (21-32); CREATININE 0.9 mg/dL (0.55-1.3); GLUCOSE,RANDOM 101 mg/dL (74-106); POTASSIUM 3.9 mmol/L (3.5-5.1); SGOT/AST 16 U/L (15-37); SGPT/ALT 25 U/L (13-61); SODIUM 145 mmol/L (136-145); TOT PROT 5.8 g/dl (6.4-8.2)
[2018-12-12 06:41] LABS: BASO % 0.2 % (0-2.0); HEMATOCRIT 32.5 % (32.4-45.2); HEMOGLOBIN 11.2 GM/dL (10.7-15.3); LYMPH % 56.6 % (8-40); MCH 29.3 pg (25.7-33.7); MCHC 34.4 g/dl (32.0-36.0); MEAN CELL VOLUME 85.1 fl (80-96); MEAN PLT VOLUME 8.8 fl (7.5-11.1); MONO % 8.2 % (3.8-10.2); PLATELET COUNT 215 K/MM3 (134-434); RBC 3.82 M/mm3 (3.60-5.2); RDW 14.8 % (11.6-15.6); WHITE BLOOD COUNT 6.9 K/mm3 (4.0-10.0)
--- NOTE | 2018-12-12 08:46 | PN ---
Progress Note, Physician - Current Medication List Current Medications: Active Medications Aspirin (Asa -) 81 mg PO DAILY [facility] Last Admin: 12/11/18 09:30 Dose: 81 mg Atorvastatin Calcium (Lipitor -) 80 mg PO HS [facility] Last Admin: 12/11/18 21:49 Dose: 80 mg Divalproex Sodium (Depakote -) 500 mg PO BID [facility] Last Admin: 12/11/18 21:49 Dose: 500 mg Heparin Sodium (Porcine) (Heparin -) 5,000 unit SQ BID [facility] Last Admin: 12/11/18 21:49 Dose: 5,000 unit Insulin Aspart (Novolog Vial Sliding Scale -) 1 vial SQ TIDAC [facility]; Protocol Last Admin: 12/12/18 06:32 Dose: Not Given Losartan Potassium (Cozaar -) 50 mg PO DAILY [facility] Last Admin: 12/11/18 09:30 Dose: 50 mg Metoprolol Tartrate (Lopressor Injection -) 5 mg IVPUSH Q6H PRN PRN Reason: HYPERTENSION - Objective Vital Signs: Vital Signs Temperature 97.6 F 12/12/18 06:00 Pulse Rate 85 12/12/18 06:00 Respiratory Rate 18 12/12/18 06:00 Blood Pressure 138/86 12/12/18 06:00 O2 Sat by Pulse Oximetry (%) 97 12/11/18 21:00 Cardiovascular: Yes: S1, S2 Respiratory: Yes: Regular, CTA Bilaterally Gastrointestinal: Yes: Normal Bowel Sounds, Soft Neurological: Yes: Alert, Oriented Labs: CBC, BMP 12/12/18 05:30 12/12/18 05:30 INR, PTT INR 0.99 (0.83-1.09) 12/09/18 05:30
[2018-12-12] MEDS ORDERED: PT OWN MED DRAWER 7, Y5N ONE (09:03)
[2018-12-12] MEDS: LOSARTAN POTASSIUM 50 MG TABLET (FP) PO SCH (09:43)
[2018-12-12] MEDS: DIVALPROEX SODIUM 500 MG TABLET E.C. PO SCH ×2 (09:43→21:40)
[2018-12-12] MEDS: HEPARIN NA (PORCINE) 5,000 UNITS/ML 1ML VIAL SQ SCH ×2 (09:44→21:40)
[2018-12-12] MEDS: ASPIRIN 81 MG CHEWABLE TABLETS PO SCH (09:44)
--- NOTE | 2018-12-12 13:13 | PN ---
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 Looks much better, no twitching, improved verbal fluency, tolerating diet. Occasional delay in expressing herself.
[2018-12-12] MEDS: ATORVASTATIN CA 80 MG TABLET (FP) PO SCH (21:40)
--- NOTE | 2018-12-12 22:07 | PN ---
Progress Note (short form) - Note Progress Note: NEUROLOGY FOLLOW-UP: Events reviewed and patient reexamined. "Twitching" has resolved after loading with Depakote supporting Dx of Myoclonus epilepsy. Carotid duplex doppler (reviewed): No significant hemodynamic stenoses. Exam normal. IMP: Normal neurological exam. Multiple CVA's Myoclonus epilepsy. SUGGEST: Continue Depakote 500 mg PO q 12 hrs. Neuro f/u and EEG as out patient. Thank you very much, Jim Han MD
[2018-12-13] MEDS: INSULIN SLIDING SCALE (NOVOLOG) 1 VIAL SQ SCH ×3 (06:24→17:15)
--- NOTE | 2018-12-13 08:13 | PN ---
Progress Note, Physician History of Present Illness: pt refusing some care - Current Medication List Current Medications: Active Medications Aspirin (Asa -) 81 mg PO DAILY [facility] Last Admin: 12/12/18 09:44 Dose: 81 mg Atorvastatin Calcium (Lipitor -) 80 mg PO HS [facility] Last Admin: 12/12/18 21:40 Dose: 80 mg Divalproex Sodium (Depakote -) 500 mg PO BID [facility] Last Admin: 12/12/18 21:40 Dose: 500 mg Heparin Sodium (Porcine) (Heparin -) 5,000 unit SQ BID [facility] Last Admin: 12/12/18 21:40 Dose: 5,000 unit Insulin Aspart (Novolog Vial Sliding Scale -) 1 vial SQ TIDAC [facility]; Protocol Last Admin: 12/13/18 06:24 Dose: Not Given Losartan Potassium (Cozaar -) 50 mg PO DAILY [facility] Last Admin: 12/12/18 09:43 Dose: 50 mg Metoprolol Tartrate (Lopressor Injection -) 5 mg IVPUSH Q6H PRN PRN Reason: HYPERTENSION - Objective Vital Signs: Vital Signs Temperature 97.6 F 12/13/18 06:00 Pulse Rate 75 12/13/18 06:00 Respiratory Rate 20 12/13/18 06:00 Blood Pressure 139/85 12/13/18 06:00 O2 Sat by Pulse Oximetry (%) 98 12/12/18 20:15 Cardiovascular: Yes: S1, S2 Respiratory: Yes: Regular, CTA Bilaterally Gastrointestinal: Yes: Normal Bowel Sounds, Soft Edema: No Labs: CBC, BMP 12/12/18 05:30 12/12/18 05:30 INR, PTT INR 0.99 (0.83-1.09) 12/09/18 05:30 Problem List - Problems (1) CVA (cerebral vascular accident) Assessment/Plan: -neurology and cardiology on board -tele monitoring -pending Carotid doppler -MRI shows possible subacute infarct -Carotid and holter -dc planning Code(s): I63.9 - CEREBRAL INFARCTION, UNSPECIFIED (2) Diabetes mellitus Assessment/Plan: -[facility] -HgA1c 6.7% Code(s): E11.9 - TYPE 2 DIABETES MELLITUS WITHOUT COMPLICATIONS Qualifiers: Diabetes mellitus type: type 2 (3) HLD (hyperlipidemia) Assessment/Plan: -continue Atorvastatin Code(s): E78.5 - HYPERLIPIDEMIA, UNSPECIFIED (4) HTN (hypertension) Assessment/Plan: -continue Metoprolol -low Na diet Code(s): I10 - ESSENTIAL (PRIMARY) HYPERTENSION Assessment/Plan CCC AND SS TO DETERMINE HOME SITUATION AND SAFETY
[2018-12-13] MEDS: DIVALPROEX SODIUM 500 MG TABLET E.C. PO SCH ×2 (10:17→21:49)
[2018-12-13] MEDS: ASPIRIN 81 MG CHEWABLE TABLETS PO SCH (10:17)
[2018-12-13] MEDS: LOSARTAN POTASSIUM 50 MG TABLET (FP) PO SCH (10:17)
[2018-12-13] MEDS: HEPARIN NA (PORCINE) 5,000 UNITS/ML 1ML VIAL SQ SCH ×2 (10:17→21:49)
--- NOTE | 2018-12-13 14:17 | CON.PSY ---
Psychiatry Consult Chief Complaint: 63 year old lamont nfor Psych eval for DEpression. Seen by Neuro fot Myoclonus, on Depakote. I have never been depressed, patient is smiling and able to converse. - Previous Psychiatric Treatment Outpatient: None Inpatient: None - Previous Substance Abuse Treatment Outpatient: None Inpatient: None - Current Medications Current Medications: Active Medications Aspirin (Asa -) 81 mg PO DAILY [facility] Last Admin: 12/13/18 10:17 Dose: 81 mg Atorvastatin Calcium (Lipitor -) 80 mg PO HS [facility] Last Admin: 12/12/18 21:40 Dose: 80 mg Divalproex Sodium (Depakote -) 500 mg PO BID [facility] Last Admin: 12/13/18 10:17 Dose: 500 mg Heparin Sodium (Porcine) (Heparin -) 5,000 unit SQ BID [facility] Last Admin: 12/13/18 10:17 Dose: 5,000 unit Insulin Aspart (Novolog Vial Sliding Scale -) 1 vial SQ TIDAC [facility]; Protocol Last Admin: 12/13/18 11:47 Dose: Not Given Losartan Potassium (Cozaar -) 50 mg PO DAILY [facility] Last Admin: 12/13/18 10:17 Dose: 50 mg Metoprolol Tartrate (Lopressor Injection -) 5 mg IVPUSH Q6H PRN PRN Reason: HYPERTENSION - Allergies Allergies: Allergies Allergy/AdvReac Type Severity Reaction Status Date / Time No Known Allergies Allergy Verified 11/26/18 19:58 - Current Living Status Usual Living Arrangement: With Child - Current Mental Status Evaluation Appearance: Well Groomed Attitude: Cooperative - Mood Mood: Euthymic - Speech/Language Expressive: Coherent - Psychomotor Activity Psychomotor Activity: Normal - Thought Process Thought Process: Intact - Thought Content Hallucinations: Absent Delusions: Absent - Self Perception Self Perception: No Impairment - Cognition Attention: Alert Orientation: Time Memory, Immediate Recall: Intact Memory, Short Term: 2/3 Memory, Remote with Promptin/3 - Concentration Serial Sevens Intact: No Simple Calculations Intact: Yes - Abstraction Proverb Interpretation: Intact Judgement: Intact - Insight Insight: Intact - Impulse Control Impulse Control: Good Control - Suicidal Ideation Suicidal Ideation: No - Homicidal Ideation Homicidal Ideation: No Assessment/Plan 1) No evidence of any clinical depression/ 2) No Psych meds needed.
--- NOTE | 2018-12-13 15:04 | HOL ---
Hook-up date: 2018-12-12 12:40:00 Duration: 11:49:00 Test Indications: CVA Medications: 19854 QRS complexes 146 Ventricular ectopics which represent <1 % of total QRS comp. 113 Supraventricular ectopics which represent <1 % of total QRS comp. * Paced QRS complexs which represent % of total QRS comp. * % of Time Classified as Noise VENTRICULAR ECTOPY 146 Isolated 0 Bigeminal Cycles 0 Couplets 0 Runs 0 Beats in Runs * Beats LONGEST at * BPM at :: -- * Beats FASTEST at * BPM at :: -- SUPRAVENTRICULAR ECTOPY 113 Isolated 0 Couplets 0 Runs 0 Beats in Runs * Beats LONGEST at * BPM at :: -- * Beats FASTEST at * BPM at :: -- HEART RATES 56 MIN at 23:44:17 2018-12-12 79 AVG 130 MAX at 13:44:19 2018-12-12 LONGEST RR 1.352 secs at 00:14:24 2018-12-13 SCANNED BY DILIA KEANE ON 12/13/18 NORMAL SINUS RHYTHM. PERIODS OF SINUS TACHYCARDIA. OCCASIONAL APCs AND PVCs. NO PAUSES Confirmed by MD DALIA, GARCIA ([id number]) on 12/13/2018 3:03:44 PM Referred By: HERMES SOTO DR Overread By: GARCIA GÓMEZ MD
[2018-12-13] MEDS: ATORVASTATIN CA 80 MG TABLET (FP) PO SCH (21:49)
[2018-12-14] MEDS: INSULIN SLIDING SCALE (NOVOLOG) 1 VIAL SQ SCH ×3 (05:59→17:01)
[2018-12-14 06:08] VITALS: TEMP 97.8
[2018-12-14] MEDS: LOSARTAN POTASSIUM 50 MG TABLET (FP) PO SCH (10:35)
[2018-12-14] MEDS: DIVALPROEX SODIUM 500 MG TABLET E.C. PO SCH (10:36)
[2018-12-14] MEDS: ASPIRIN 81 MG CHEWABLE TABLETS PO SCH (10:36)
[2018-12-14] MEDS: HEPARIN NA (PORCINE) 5,000 UNITS/ML 1ML VIAL SQ SCH (10:36)
--- NOTE | 2018-12-14 12:47 | DS ---
Physical Examination Vital Signs: Vital Signs Temperature 97.8 F 12/14/18 10:00 Pulse Rate 77 12/14/18 10:00 Respiratory Rate 16 12/14/18 10:00 Blood Pressure 132/93 12/14/18 10:00 O2 Sat by Pulse Oximetry (%) 100 12/14/18 09:00 Cardiovascular: Yes: Regular Rate and Rhythm Respiratory: Yes: Regular, CTA Bilaterally Gastrointestinal: Yes: Normal Bowel Sounds, Soft Labs: CBC, BMP 12/12/18 05:30 12/12/18 05:30 Discharge Summary Reason For Visit: TIA Current Active Problems CVA (cerebral vascular accident) (Acute) TIA (transient ischemic attack) (Acute) Hospital Course: - Problems (1) CVA (cerebral vascular accident) Assessment/Plan: -neurology and cardiology on board -tele monitoring -pending Carotid doppler -MRI shows possible subacute infarct -Carotid and holter -dc planning Code(s): I63.9 - CEREBRAL INFARCTION, UNSPECIFIED (2) Diabetes mellitus Assessment/Plan: -BGM ACHS -ISS -HgA1c 6.7% follow up with pmd regarding meds Code(s): E11.9 - TYPE 2 DIABETES MELLITUS WITHOUT COMPLICATIONS Qualifiers: Diabetes mellitus type: type 2 (3) HLD (hyperlipidemia) Assessment/Plan: -continue Atorvastatin Code(s): E78.5 - HYPERLIPIDEMIA, UNSPECIFIED (4) HTN (hypertension) Assessment/Plan: -continue Metoprolol -low Na diet Code(s): I10 - ESSENTIAL (PRIMARY) HYPERTENSION Assessment/Plan CCC AND SS TO DETERMINE HOME SITUATION AND SAFETY Condition: Stable - Instructions Diet, Activity, Other Instructions: monitor blood sugar if above 200 call md follow up with dr horvath within one week Referrals: Jim Han MD [Staff Physician] - Dante Horvath [Primary Care Provider] - Disposition: VNS/HOME HEALTH CARE - Home Medications Comprehensive Discharge Medication List: Ambulatory Orders Aspirin [ASA -] 81 mg PO DAILY 11/26/18 Atorvastatin Ca [Lipitor] 80 mg PO HS 11/26/18 Hydrochlorothiazide 25 mg PO DAILY 11/26/18 Metoprolol Succinate 25 mg PO DAILY 11/26/18 Vitamin B Complex 1 each PO DAILY 11/26/18 Vitamin B Comp W-C [Total B with C -] 1 each PO DAILY #30 tablet 11/28/18 Divalproex [Depakote -] 500 mg PO BID #60 tablet.ec 12/14/18 Losartan Potassium [Cozaar -] 50 mg PO DAILY #30 tablet 12/14/18
[2018-12-14 14:29] VITALS: BP 150/90; PULSE 88
[2018-12-15] MEDS ORDERED: HYDROCHLOROTHIAZIDE 25 MG TABLET (FP) PO SCH (10:00)
[2018-12-15] MEDS ORDERED: metoPROLOL SUCCINATE 25 MG TAB.SR.24H (FP) PO SCH (10:00)
== END 2018-12-14 19:00 | disposition home health service (06) | DRG 45 ==
LOC: JER 12:08 → JERBED 13:34 → OBSVTOIN 16:02 → J4S 12-09 18:13
PROVIDERS: ADMIT Student in an Organized Health Care Education/Training Program; ATTEND Student in an Organized Health Care Education/Training Program
DX: I63.9 Cerebral infarction, unspecified (principal); I10 Essential (primary) hypertension; E11.9 Type 2 diabetes mellitus without complications; Z79.4 Long term (current) use of insulin; E78.5 Hyperlipidemia, unspecified; R53.1 Weakness
CPT/HCPCS: 36415; 70450-TC; 70551-TC; 71045-TC-FY; 80053; 81003; 82465; 82550; 82607; 82962; 83036; 83718; 83721; 83735; 84100; 84443; 84478; 84484; 85025; 85027; 85610; 85730; 86593; 86850; 86900; 86901; 87086; 93005; 93010; 93225; 93226; 93880-TC; 95816; 97116-GP; 97161-GP; 99285-25; G0378; J1644; J7030

== ENCOUNTER 2019-03-10 19:01 | Emergency (ER) | payer OTHER ==
[2019-03-10 19:35] VITALS: BMI 28.3
--- NOTE | 2019-03-10 19:38 | PDOC ---
Rapid Medical Evaluation Chief Complaint: Syncope/Near Syncope Time Seen by Provider: 03/10/19 19:33 Medical Evaluation: Allergies Allergy/AdvReac Type Severity Reaction Status Date / Time No Known Allergies Allergy Verified 11/26/18 19:58 03/10/19 19:34 I have performed a brief in-person evaluation of this patient. The patient presents with a chief complaint of: Pre syncope 63 yo w/ DM, seizures c/o "feeling fait" an hr ago, she just started sweating and felt dizzy, fell on her butocks. No LOC, no head trauma. According to daughter, did not look like a seizure. NO CP/SOB. I have ordered the following: fingerstick, EKG, CBC, CMP, cardiac enzymes, valproic acid level. The patient will proceed to the ED for further evaluation. 03/10/19 19:38 Discharge Disposition - Diagnosis Lightheadedness - Referrals - Patient Instructions - Post Discharge Activity
--- NOTE | 2019-03-10 20:37 | PDOC ---
History of Present Illness <LindsayLila - Last Filed: 03/11/19 00:27> <RossKina - Last Filed: 03/11/19 00:32> - General Chief Complaint: Syncope/Near Syncope Stated Complaint: FALL Time Seen by Provider: 03/10/19 19:33 Past History - Past Medical History CVA: Yes (TIA) COPD: No Diabetes: Yes HTN: Yes Hypercholesterolemia: Yes Seizures: Yes - Immunization History Immunization Up to Date: Yes - Suicide/Smoking/Psychosocial Hx Smoking History: Never smoked Hx Alcohol Use: No Drug/Substance Use Hx: No Substance Use Type: None Hx Substance Use Treatment: No <LindsayLila - Last Filed: 03/11/19 00:27> <Kina Ross - Last Filed: 03/11/19 00:32> - Past Medical History Allergies/Adverse Reactions: Allergies Allergy/AdvReac Type Severity Reaction Status Date / Time No Known Allergies Allergy Verified 11/26/18 19:58 Home Medications: Ambulatory Orders Aspirin [ASA -] 81 mg PO DAILY 11/26/18 Atorvastatin Ca [Lipitor] 80 mg PO HS 11/26/18 Hydrochlorothiazide 25 mg PO DAILY 11/26/18 Metoprolol Succinate 25 mg PO DAILY 11/26/18 Vitamin B Complex 1 each PO DAILY 11/26/18 Vitamin B Comp W-C [Total B with C -] 1 each PO DAILY #30 tablet 11/28/18 Divalproex [Depakote -] 500 mg PO BID #60 tablet.ec 12/14/18 Losartan Potassium [Cozaar -] 50 mg PO DAILY #30 tablet 12/14/18 Cephalexin [Keflex] 500 mg PO BID #14 capsule 03/11/19 Cephalexin [Keflex] 500 mg PO BID #14 capsule 03/11/19 *Physical Exam - Vital Signs Last Vital Signs Temp Pulse Resp BP Pulse Ox 97.5 F L 83 18 122/83 98 03/10/19 19:32 03/10/19 19:32 03/10/19 19:32 03/10/19 19:32 03/10/19 19:32 <LindsayLila - Last Filed: 03/11/19 00:27> - Vital Signs Last Vital Signs Temp Pulse Resp BP Pulse Ox 97.5 F L 83 18 122/83 98 03/10/19 19:32 03/10/19 19:32 03/10/19 19:32 03/10/19 19:32 03/10/19 19:32 <Kina Ross - Last Filed: 03/11/19 00:32> ED Treatment Course - LABORATORY CBC & Chemistry Diagram: 03/10/19 21:30 03/10/19 21:30 <Lila Montoya - Last Filed: 03/11/19 00:27> - LABORATORY CBC & Chemistry Diagram: 03/10/19 21:30 03/10/19 21:30 - ADDITIONAL ORDERS Additional order review: Laboratory Results 03/11/19 03/10/19 03/10/19 00:23 23:00 21:30 Sodium Potassium Chloride Carbon Dioxide Anion Gap BUN Creatinine Est GFR (CKD-EPI)AfAm Est GFR (CKD-EPI)NonAf POC Glucometer 104 Random Glucose Calcium Phosphorus Magnesium Total Bilirubin AST ALT Alkaline Phosphatase Creatine Kinase Troponin I Total Protein Albumin Urine Color Dk yellow Urine Appearance Cloudy Urine pH 5.0 Ur Specific [place] 1.034 Urine Protein 1+ H Urine Glucose (UA) Negative Urine Ketones 1+ H Urine Blood Negative Urine Nitrite Negative Urine Bilirubin 1+ H Urine Urobilinogen 1.0 Ur Leukocyte Esterase 2+ H Urine WBC (Auto) 67 Urine Casts (Auto) 61 U Epithel Cells (Auto) 2.4 Urine Bacteria (Auto) 436.5 Valproic Acid 84.7 03/10/19 03/10/19 03/10/19 21:30 21:30 21:30 Sodium 143 Potassium 3.7 Chloride 104 Carbon Dioxide 30 Anion Gap 10 BUN 20.8 H Creatinine 1.6 H Est GFR (CKD-EPI)AfAm 39.89 Est GFR (CKD-EPI)NonAf 34.42 POC Glucometer Random Glucose 131 H Calcium 9.2 Phosphorus 3.8 Magnesium 2.0 Total Bilirubin 0.3 AST 21 ALT 29 Alkaline Phosphatase 85 Creatine Kinase 133 Troponin I < 0.02 Total Protein 6.6 Albumin 3.5 Urine Color Urine Appearance Urine pH Ur Specific [place] Urine Protein Urine Glucose (UA) Urine Ketones Urine Blood Urine Nitrite Urine Bilirubin Urine Urobilinogen Ur Leukocyte Esterase Urine WBC (Auto) Urine Casts (Auto) U Epithel Cells (Auto) Urine Bacteria (Auto) Valproic Acid 03/11/19 03/10/19 00:23 21:30 RBC 4.19 MCV 88.4 MCHC 33.8 RDW 15.1 MPV 9.2 Neutrophils % 65.6 D Lymphocytes % 27.9 D Monocytes % 5.8 Eosinophils % 0.4 Basophils % 0.3 POC Glucometer 104 - Medications Given in the ED: ED Medications Discontinued Medications Generic Name Dose Route Start Last Admin Trade Name Seema PRN Reason Stop Dose Admin Cephalexin HCl 500 mg 03/10/19 23:56 03/11/19 00:28 Keflex - PO 03/10/19 23:57 500 mg ONCE ONE Administration Sodium Chloride 1,000 ml 03/10/19 23:56 03/11/19 00:28 Normal Saline - IV 03/10/19 23:57 1,000 ml ONCE ONE Administration <Kina Ross - Last Filed: 03/11/19 00:32> Medical Decision Making - Medical Decision Making HPI: 63yo F with PMH of HTN, HLD, DM, CVA in November, Seizure on valproate presenting after a pre-syncopal episode. Patient states she was sitting outside on a stool when she suddenly felt weak and lightheaded and fell off the stool, hitting her rear on the ground. Denies hitting her head. Patient's daughter witnessed the episode and states she saw no jerking/shaking motion, no tongue/lip biting, no urinary/stool incontinence. For a couple minutes, she called her mother's name, but her mother did not reply. The patient does not have any acute complaints. Daughter reports that she has had confusion, memory problems, and unsteadiness on her feet which are currently at their baseline. Patient ambulates on her own. Denies alcohol or recreational substance use. No fevers, chills, chest pain , or shortness of breath. ROS: Constitutional: no fever, no chills HEENT: no throat pain, no dysphagia Cardiovascular: no chest pain, no palpitations Respiratory: no cough, no shortness of breath Gastrointestinal: no abdominal pain, no nausea Genitourinary: no dysuria, no hematuria Musculoskeletal: no myalgia, no arthralgia Skin: no rash, no itching Neurologic: +lightheaded, +weak PE: General: Awake, alert, and oriented x 2 (able to state name, age, place, but struggling with date/year), in no acute distress Head: No signs of trauma Eyes: EOMI, sclera anicteric ENT: Moist mucus membranes Neck: Normal ROM, supple Lungs: Lungs clear, Normal breath sounds Cardio: Regular rhythm, S1 and S2 present Abdomen: Soft, nontender. No guarding, no rebound, no masses Extremities: Normal range of motion, Distal pulses present SKIN: Warm, Dry, normal turgor Neurologic: Cranial nerves II through XII intact. Normal speech, sensation, strength, coordination. Deferred gait exam. ED Courses/MDM: DDX includes but not limited to vasovagal syncope, cardiogenic syncope, metabolic syncope, neurogenic syncope, postural syncope, , intoxication , seizure Labs EKG CXR Though patient without LOC/n/v, she is not fully oriented. Decision made to order CT Head. Likely telemetry observation for pre-syncope 03/10/19 21:31 CT Head without acute pathology, per radiology report 03/10/19 23:49 CBC WBC 8.6 K/mm3 (4.0-10.0) 03/10/19 21:30 RBC 4.19 M/mm3 (3.60-5.2) 03/10/19 21:30 Hgb 12.5 GM/dL (10.7-15.3) 03/10/19 21:30 Hct 37.0 % (32.4-45.2) 03/10/19 21:30 MCV 88.4 fl (80-96) 03/10/19 21:30 MCH 29.9 pg (25.7-33.7) 03/10/19 21:30 MCHC 33.8 g/dl (32.0-36.0) 03/10/19 21:30 RDW 15.1 % (11.6-15.6) 03/10/19 21:30 Plt Count 195 K/MM3 (134-434) 03/10/19 21:30 MPV 9.2 fl (7.5-11.1) 03/10/19 21:30 Absolute Neuts (auto) 5.6 K/mm3 (1.5-8.0) 03/10/19 21:30 Neutrophils % 65.6 % (42.8-82.8) D 03/10/19 21:30 Lymphocytes % 27.9 % (8-40) D 03/10/19 21:30 Monocytes % 5.8 % (3.8-10.2) 03/10/19 21:30 Eosinophils % 0.4 % (0-4.5) 03/10/19 21:30 Basophils % 0.3 % (0-2.0) 03/10/19 21:30 Nucleated RBC % 0 % (0-0) 03/10/19 21:30 No anemia or leukocytosis CMP Sodium 143 mmol/L (136-145) 03/10/19 21:30 Potassium 3.7 mmol/L (3.5-5.1) 03/10/19 21:30 Chloride 104 mmol/L (98-107) 03/10/19 21:30 Carbon Dioxide 30 mmol/L (21-32) 03/10/19 21:30 Anion Gap 10 MMOL/L (8-16) 03/10/19 21:30 BUN 20.8 mg/dL (7-18) H 03/10/19 21:30 Creatinine 1.6 mg/dL (0.55-1.3) H 03/10/19 21:30 Est GFR (CKD-EPI)AfAm 39.89 03/10/19 21:30 Est GFR (CKD-EPI)NonAf 34.42 03/10/19 21:30 Random Glucose 131 mg/dL (74-106) H 03/10/19 21:30 Calcium 9.2 mg/dL (8.5-10.1) 03/10/19 21:30 Phosphorus 3.8 mg/dL (2.5-4.9) 03/10/19 21:30 Magnesium 2.0 mg/dL (1.8-2.4) 03/10/19 21:30 Total Bilirubin 0.3 mg/dL (0.2-1) 03/10/19 21:30 AST 21 U/L (15-37) 03/10/19 21:30 ALT 29 U/L (13-61) 03/10/19 21:30 Alkaline Phosphatase 85 U/L (45-117) 03/10/19 21:30 Creatine Kinase 133 U/L (26-192) 03/10/19 21:30 Troponin I < 0.02 ng/ml (0.00-0.05) 03/10/19 21:30 Total Protein 6.6 g/dl (6.4-8.2) 03/10/19 21:30 Albumin 3.5 g/dl (3.4-5.0) 03/10/19 21:30 Electrolytes unremarkable Elevated BUN and Cr; will hydrate with IV fluids Tpn undetectable UA with infection: 2+LE, 67 WBC, and 436.5 bacteria; also 1+ ketones and 1+ protein Will treat with Rocephin 03/11/19 00:14 03/11/19 00:15 <Lila Montoya - Last Filed: 03/11/19 00:27> *DC/Admit/Observation/Transfer <Lila Montoya - Last Filed: 03/11/19 00:27> <Kina Ross - Last Filed: 03/11/19 00:32> Diagnosis at time of Disposition: Lightheadedness, Pre-syncope, Dehydration UTI (urinary tract infection) Qualifiers: Urinary tract infection type: site unspecified Hematuria presence: without hematuria Qualified Code(s): N39.0 - Urinary tract infection, site not specified - Discharge Dispostion Disposition: HOME Condition at time of disposition: Stable - Prescriptions Prescriptions: Cephalexin [Keflex] 500 mg PO BID #14 capsule Cephalexin [Keflex] 500 mg PO BID #14 capsule - Referrals Referrals: Dante Cardozo [Primary Care Provider] - - Patient Instructions Printed Discharge Instructions: DI for Syncope in Adults (Fainting), DI for Urinary Tract Infection (UTI) Additional Instructions: You came into the emergency department after syncope (fainting). Your lab work showed signs of dehydration and a urinary tract infection. Antibiotics prescription has been sent to your pharmacy. Eat and hydrate throughout the day to prevent dehydration and low blood sugar levels. Follow up with your primary care physician within 72 hours to discuss this ED visit and for further evaluation of your symptoms. Your care is not complete until you do so. Call and make an appointment. Immediate medical attention is required if: you pass out again, have any chest pain, palpitations, shortness of breath, severe headaches, changes in vision, focal numbness or weakness, any severe abdominal pain, any black tarry stool, or any new or concerning symptoms. If you think you are having an emergency, call for emergency medical services or present to the emergency department right away. - Post Discharge Activity
--- NOTE | 2019-03-10 21:00 | PDOC ---
*Physical Exam - Vital Signs Last Vital Signs Temp Pulse Resp BP Pulse Ox 97.5 F L 83 18 122/83 98 03/10/19 19:32 03/10/19 19:32 03/10/19 19:32 03/10/19 19:32 03/10/19 19:32 *DC/Admit/Observation/Transfer Diagnosis at time of Disposition: Lightheadedness - Referrals Referrals: Dante Cardozo [Primary Care Provider] - - Patient Instructions - Post Discharge Activity
[2019-03-10 21:38] LABS: BASO % 0.3 % (0-2.0); EOS % 0.4 % (0-4.5); HEMOGLOBIN 12.5 GM/dL (10.7-15.3); LYMPH % 27.9 % (8-40); MCH 29.9 pg (25.7-33.7); MCHC 33.8 g/dl (32.0-36.0); MEAN CELL VOLUME 88.4 fl (80-96); MEAN PLT VOLUME 9.2 fl (7.5-11.1); MONO % 5.8 % (3.8-10.2); NEUT % 65.6 % (42.8-82.8); PLATELET COUNT 195 K/MM3 (134-434); RBC 4.19 M/mm3 (3.60-5.2); RDW 15.1 % (11.6-15.6); WHITE BLOOD COUNT 8.6 K/mm3 (4.0-10.0)
[2019-03-10 22:01] LABS: ALBUMIN 3.5 g/dl (3.4-5.0); BILIRUBIN,TOTAL 0.3 mg/dL (0.2-1); BLOOD UREA NITROGEN 20.8 mg/dL (7-18); CALCIUM 9.2 mg/dL (8.5-10.1); CREATININE 1.6 mg/dL (0.55-1.3); POTASSIUM 3.7 mmol/L (3.5-5.1); TOT PROT 6.6 g/dl (6.4-8.2)
[2019-03-10 23:49] LABS: EPI CELLS 2.4 /HPF (0-5/HPF); HYALINE CASTS 61 /lpf (0-8); URINE APPEARANCE CLOUDY; URINE BACTERIA 436.5 /hpf (NEGATIVE); URINE BILIRUBIN 1+ (NEGATIVE); URINE COLOR DK YELLOW; URINE GLUCOSE (UA) NEGATIVE (NEGATIVE); URINE KETONE 1+ (NEGATIVE); URINE LEUK ESTERASE 2+ (NEGATIVE); URINE NITRITE NEGATIVE (NEGATIVE); URINE PROTEIN 1+ (NEGATIVE); URINE WBC 67 /hpf (0-5)
[2019-03-10] MEDS ORDERED: SODIUM CHLORIDE 0.9% 500 ML INFUS.BAG IV ONE (23:56)
[2019-03-10] MEDS ORDERED: CEPHALEXIN MONOHYDRATE 500 MG CAPSULE (UD) PO ONE (23:56)
[2019-03-11] MEDS ORDERED: CEPHALEXIN MONOHYDRATE 500 MG CAPSULE (UD) ONE (00:16)
--- NOTE | 2019-03-11 00:32 | PDOC ---
Documentation entered by Dionne Harding SCRIBE, acting as scribe for Kina Ross MD. Kina Ross MD: This documentation has been prepared by the Meaghan cee Brenda, SCRIBE, under my direction and personally reviewed by me in its entirety. I confirm that the documentation accurately reflects all work, treatment, procedures, and medical decision making performed by me. Attending Attestation - Resident Resident Name: Lila Montoya - ED Attending Attestation I have performed the following: I have examined & evaluated the patient, The case was reviewed & discussed with the resident, I agree w/resident's findings & plan, Exceptions are as noted - HPI HPI: 03/11/19 00:02 The patient is a 63 year old female, with a significant PMH of HTN, HLD, DM, CVA in November and Seizures (on valproate) who presents to the emergency department with a pre-syncopal episode. As per daughter, on the bedside, daughter was sitting outside on a stool, at which time she fell, due to her feeling lightheaded and funny, without hitting her head, but hitting her rear.. The daughter denies any tonic clonic activity, such as lip biting or jerking. The daughter notes calling out her name, to no response, Daughter does note that the patient has recently been having memory loss and confusion accompanied by being unsteady on her feet. Patient currently has no complaints. The patient denies chest pain, shortness of breath. Denies fever, chills, nausea, vomiting, diarrhea and constipation. Denies any urinary symptoms. Denies any other symptoms. Allergies: NKA Social history: Denies alcohol or recreational substance use. PCP: [facility] - Phys[facility] Exam PE: 03/11/19 00:02 GENERAL: Awake, alert, and fully oriented, in no acute distress HEAD: No signs of trauma EYES: PERRLA, EOMI, sclera anicteric, conjunctiva clear ENT: Auricles normal inspection, hearing grossly normal, nares patent, oropharynx clear without exudates. Moist mucosa NECK: Normal ROM, supple, no lymphadenopathy, JVD, or masses LUNGS: Breath sounds equal, clear to auscultation bilaterally. No wheezes, and no crackles HEART: Regular rate and rhythm, normal S1 and S2, no murmurs, rubs or gallops ABDOMEN: Soft, nontender, normoactive bowel sounds. No guarding, no rebound. No masses EXTREMITIES: +Lower extremity weakness. Normal range of motion, no edema. No clubbing or cyanosis. No cords, erythema, or tenderness NEUROLOGICAL: Cranial nerves II through XII grossly intact. Normal speech, normal gait SKIN: Warm, Dry, normal turgor, no rashes or lesions noted. - Medical Decision Making 03/11/19 00:55 Pt felt dizzy today and a bit lightheaded. She is dehydrated in the ER with ketones in her urine and she has a UTI. She was hydrated with IV in the ER and she will be sent home with cephalexin BID x 1 week for her UTI. Pt advised to also do physical rehab. as it will help her strengthen.
[2019-03-11 05:07] VITALS: BP 154/89; PULSE 92; TEMP 97.6
--- NOTE | 2019-03-12 10:42 | EKG ---
Test Reason : Blood Pressure : / mmHG Vent. Rate : 082 BPM Atrial Rate : 082 BPM P-R Int : 138 ms QRS Dur : 080 ms QT Int : 386 ms P-R-T Axes : 070 040 075 degrees QTc Int : 450 ms NORMAL SINUS RHYTHM NORMAL ECG WHEN COMPARED WITH ECG OF 08-DEC-2018 12:34, NO SIGNIFICANT CHANGE WAS FOUND Confirmed by ANGELLA HARRISON MD ([id number]) on 03/12/2019 10:42:12 AM Referred By: Confirmed By:ANGELLA HARRISON MD
== END 2019-03-11 01:38 | disposition home or self-care (01) ==
LOC: JER 19:01
PROC: 3E0337Z Introduction of Electrolytic and Water Balance Substance into Peripheral Vein, Percutaneous Approach (ICD-10-PCS; principal; 2019-03-10)
DX: N39.0 Urinary tract infection, site not specified (principal); E86.0 Dehydration; R55 Syncope and collapse; E42 Marasmic kwashiorkor; I10 Essential (primary) hypertension; E78.00 Pure hypercholesterolemia, unspecified; E11.9 Type 2 diabetes mellitus without complications; G40.909 Epilepsy, unspecified, not intractable, without status epilepticus; Z86.73 Personal history of transient ischemic attack (TIA), and cerebral infarction without residual deficits; W18.30XA Fall on same level, unspecified, initial encounter; Y93.89 Activity, other specified; Y92.038 Other place in apartment as the place of occurrence of the external cause; Y99.8 Other external cause status
CPT/HCPCS: 36415; 70450-TC; 71045-TC-FY; 80053; 80164; 81003; 82550; 82962; 83735; 84100; 84484; 85025; 87086; 93005; 93010; 99284-25